=== PATIENT | male | born 1990 | race Caucasian/White ===

== ENCOUNTER 2018-08-30 19:30 | Emergency (ER) | payer MEDICARE, OTHER ==
[~2018-08-30] VITALS: Ht 182.9 cm; Wt 114.0 kg
[2018-08-30 19:34] VITALS: Ht 182.9 cm; Wt 114.0 kg
--- NOTE | 2018-08-30 20:40 | ERD ---
ER Documentation Chief Complaint Chief Complaint FEVER WITH COUGH/SORE THROAT X 4 DAYS HPI 28-year-old male, presents to the emergency department with acute onset of high fever, runny nose, chest congestion, dry cough and general malaise that started 2 days ago. The patient has been receiving iarv-jjx-retomkg medications without improvement of the symptoms. Otherwise, no shortness of breath, no rashes, no diarrhea or constipation. ROS All systems reviewed and are negative except as per history of present illness. Medications Home Meds Active Scripts Promethazine HCl/Codeine (Prometh-Codein 6.25-10 mg/5 ml) 5 Ml Syrup, 5 ML PO BID, #60 ML Prov:JHON HARP MD 08/30/18 Albuterol Sulfate* (Proair HFA*) 8.5 Gm Hfa.aer.ad, 2 PUFF INH Q4, #1 INHALER Prov:JHON HARP MD 08/30/18 Ibuprofen* (Motrin*) 600 Mg Tab, 600 MG PO Q8, #20 TAB Prov:JHON HARP MD 08/30/18 Azithromycin* (Zithromax*) 250 Mg Tablet, 250 MG PO .ZPACK DIRECTED, #6 TAB TAKE 500 MG (2 TABS) THE FIRST DAY THEN 250 MG (1 TAB) DAYS 2-5 Prov:JHON HARP MD 08/30/18 Allergies Allergies: Coded Allergies: No Known Allergy (Unverified , 08/30/18) PMhx/Soc Medical and Surgical Hx: pt denies Medical Hx, pt denies Surgical Hx Hx Alcohol Use: No Hx Substance Use: No Hx Tobacco Use: No Smoking Status: Never smoker FmHx Family History: No diabetes, No coronary disease Physical Exam Vitals Vital Signs Date Temp Pulse Resp B/P (MAP) Pulse Ox O2 O2 Flow FiO2 Time Delivery Rate 08/30/18 99.0 77 18 138/82 98 Room Air 21:50 (100) 08/30/18 102.2 130 20 146/97 96 19:34 (113) Physical Exam Patient is in moderate distress due to cough and fever, vital signs showed fever. EYES: PERRLA, EOMI, injected sclerae EARS: Canals clear, erythematous tympanic membranes THROAT: Erythematous oropharynx. NECK: Supple, No lymphadenopathy. Full ROM without pain or tenderness. HEART: RRR, no rubs, murmurs, clicks or gallops. LUNGS: Bilateral rhonchi to auscultation. ABDOMEN: Soft, non-tender without masses or hepatosplenomegaly. EXTREMITIES: No edema bilaterally. BACK: Full ROM, no deformity, normal back exam NEURO: Cranial nerves grossly intact, no motor or sensory deficit Results 24 hrs Current Medications Medications Dose Sig/Tony Start Time Status Last (Trade) Ordered Route PRN Stop Time Admin Dose Reason Admin Ibuprofen 400 mg ONCE ONCE 08/30/18 DC 08/30/18 (Motrin) PO 21:00 08/30/18 20:54 21:01 650 mg ONCE ONCE 08/30/18 DC 08/30/18 Acetaminophen PO 21:00 08/30/18 20:54 (Tylenol 21:01 Tab) Procedures/MDM At the time of discharge, patient with nontoxic appearance, vital signs stable, no respiratory distress. Differential diagnosis include but not limited to: Respiratory infection bacterial/viral/fungal. Influenza, whooping cough, pneumonia, pneumonitis, al lergies, GERD. Less likely foreign body aspiration, cardiac related. Physical examination and clinical presentation consistent most likely with viral infection with early superimposed bacterial infection. During the ED course the patient remained stable, no new complaints. Treatment options and clinical impression discussed with the patient who agrees with management. The patient is stable to be treated outpatient and will be discharged home. Some side effects of prescribed medications (headache, rash, nausea, vomiting, diarrhea, interactions with other medications) were reviewed. The patient needs to follow up with the primary care provider in the next 48h. If symptoms persist, worsen or new symptoms develop, then patient should return to the ED immediately. Disclaimer: Inadvertent spelling and grammatical errors are likely due to EHR/dictation software use and do not reflect on the overall quality of patient care. Also, please note that the electronic time recorded on this note does not necessarily reflect the actual time of the patient encounter. Departure Diagnosis: Primary Impression: Cough Additional Impressions: Fever Superimposed infection Condition: Stable Additional Instructions: Thank you very much for allowing us to participate in your care. Your health and safety is our top priority at [facility]. Call your primary care doctor TOMORROW for an appointment during the next 2-4 days and bring all the information and medications prescribed. Have prescriptions filled and follow precisely the directions on the label. If the symptoms get worse and your provider is unavailable, return to the Emergency Department immediately. JHON HARP MD Aug 30, 2018 20:40
[2018-08-30] MEDS ORDERED: AZIT250T PO (20:43)
[2018-08-30] MEDS ORDERED: PROM5SYR2 PO (20:43)
[2018-08-30] MEDS ORDERED: ALBU8.5H8 INH (20:43)
[2018-08-30] MEDS ORDERED: IBUP-1542 PO (20:43)
[2018-08-30] MEDS ORDERED: IBUPROFEN 200 MG TAB PO ONE (21:00)
[2018-08-30] MEDS ORDERED: ACETAMINOPHEN 325 MG TAB PO ONE (21:00)
[2018-08-30 21:50] VITALS: BP 138/82; PULSE 77; RESP 18
== END 2018-08-30 21:53 | disposition home or self-care (01) ==
LOC: FTE 19:30
DX: A49.9 Bacterial infection, unspecified (principal)
CPT/HCPCS: 99283

== ENCOUNTER 2018-09-02 07:02 | Inpatient (IN) | payer MEDICARE, OTHER ==
[~2018-09-02] VITALS: Ht 172.7 cm; Wt 116.0 kg
[~2018-09-02 07:02] MED LIST: ALBU8.5H8 INH; AZIT250T PO; IBUP-1542 PO; PROM5SYR2 PO
[2018-09-02] MEDS ORDERED: ALBUTEROL 0.083% (NEB) 2.5 MG/3 ML AMP INH STA (08:11)
[2018-09-02] MEDS ORDERED: IPRATROPIUM (NEB) 0.5 MG/2.5 ML AMP INH STA (08:11)
[2018-09-02] MEDS ORDERED: ACETAMINOPHEN 500 MG TAB PO STA (08:14)
--- NOTE | 2018-09-02 08:19 | ERD ---
ER Documentation Chief Complaint Chief Complaint fever, cough, n/v x 8 days HPI 28-year-old male presents with fever cough, nausea and vomiting 3 days. Seen here 3 days ago, and was given a Z-Jamie. He presents with fever today, still has not improved. He was brought into the ED, with an O2 sat of 91%. He denies recent travel, denies IV drug use, he has a family member who works in the hospital who is sick. ROS All systems reviewed and are negative except as per history of present illness. Medications Home Meds Active Scripts Promethazine HCl/Codeine (Prometh-Codein 6.25-10 mg/5 ml) 5 Ml Syrup, 5 ML PO BID, #60 ML Prov:JHON HARP MD 08/30/18 Albuterol Sulfate* (Proair HFA*) 8.5 Gm Hfa.aer.ad, 2 PUFF INH Q4, #1 INHALER Prov:JHON HARP MD 08/30/18 Ibuprofen* (Motrin*) 600 Mg Tab, 600 MG PO Q8, #20 TAB Prov:JHON HARP MD 08/30/18 Azithromycin* (Zithromax*) 250 Mg Tablet, 250 MG PO .ZPACK DIRECTED, #6 TAB TAKE 500 MG (2 TABS) THE FIRST DAY THEN 250 MG (1 TAB) DAYS 2-5 Prov:JHON HARP MD 08/30/18 Allergies Allergies: Coded Allergies: No Known Allergy (Unverified , 08/30/18) PMhx/Soc Hx Alcohol Use: No Hx Substance Use: No Hx Tobacco Use: No Physical Exam Vitals Vital Signs Date Temp Pulse Resp B/P (MAP) Pulse Ox O2 O2 Flow FiO2 Time Delivery Rate 09/02/18 Simple 5 09:04 Mask 09/02/18 93 Mask 5.0 08:45 09/02/18 112 19 85 21 08:40 09/02/18 103.1 135 25 125/83 85 Room Air 08:30 (97) 09/02/18 Simple 5.0 08:30 Mask 09/02/18 102.6 138 22 162/68 91 07:07 (99) Physical Exam Const: No acute distress Head: Atraumatic Eyes: Normal Conjunctiva ENT: Normal External Ears, Nose and Mouth. Neck: Full range of motion. No meningismus. Resp: Clear to auscultation bilaterally Cardio: Regular rate and rhythm, no murmurs Abd: Soft, non tender, non distended. Normal bowel sounds Skin: No petechiae or rashes Back: No midline or flank tenderness Ext: No cyanosis, or edema Neur: Awake and alert Psych: Normal Mood and Affect Result Diagram: 09/02/18 0857 09/02/18 0857 Results 24 hrs Laboratory Tests Test 09/02/18 08:38 09/02/18 08:57 09/02/18 09:02 Urine Color ADAM Urine Clarity SLIGHTLY CLOUDY Urine pH 6.0 Urine Specific Reserve 1.024 Urine Ketones NEGATIVE mg/dL Urine Nitrite NEGATIVE mg/dL Urine Bilirubin NEGATIVE mg/dL Urine Urobilinogen 2+ mg/dL Urine Leukocyte Esterase NEGATIVE Leslie/ul Urine Microscopic RBC 1 /HPF Urine Microscopic WBC 2 /HPF Urine Hemoglobin 1+ mg/dL Urine Glucose NEGATIVE mg/dL Urine Total Protein 2+ mg/dl White Blood Count 5.3 10^3/ul Red Blood Count 5.67 10^6/ul Hemoglobin 17.0 g/dl Hematocrit 50.3 % Mean Corpuscular Volume 88.7 fl Mean Corpuscular Hemoglobin 30.0 pg Mean Corpuscular 33.8 g/dl Hemoglobin Concent Red Cell Distribution Width 12.5 % Platelet Count 254 10^3/UL Mean Platelet Volume 10.7 fl Immature Granulocytes % 0.400 % Neutrophils % 87.4 % Lymphocytes % 9.3 % Monocytes % 2.7 % Eosinophils % 0.0 % Basophils % 0.2 % Nucleated Red Blood Cells % 0.0 /100WBC Immature Granulocytes # 0.020 10^3/ul Neutrophils # 4.6 10^3/ul Lymphocytes # 0.5 10^3/ul Monocytes # 0.1 10^3/ul Eosinophils # 0.0 10^3/ul Basophils # 0.0 10^3/ul Nucleated Red Blood Cells # 0.0 10^3/ul Prothrombin Time 12.5 Sec Prothrombin Time Ratio 1.0 INR International 0.92 Normalized Ratio Activated Partial Thromboplast 29.4 Sec Time Sodium Level 137 mmol/L Potassium Level 3.9 mmol/L Chloride Level 97 mmol/L Carbon Dioxide Level 30 mmol/L Anion Gap 10 Blood Urea Nitrogen 11 mg/dl Creatinine 0.90 mg/dl Est Glomerular Filtrat > 60 mL/min Rate mL/min Glucose Level 143 mg/dl Calcium Level 8.6 mg/dl Total Bilirubin 0.4 mg/dl Direct Bilirubin 0.00 mg/dl Indirect Bilirubin 0.4 mg/dl Aspartate Amino Transf (AST/SGOT) 106 IU/L Alanine 65 IU/L Aminotransferase (ALT/SGPT) Alkaline Phosphatase 89 IU/L Troponin I < 0.012 ng/ml B-Type Natriuretic Peptide 24 PG/ML Total Protein 7.1 g/dl Albumin 3.8 g/dl Globulin 3.30 g/dl Albumin/Globulin Ratio 1.15 POC Venous Lactate 2.3 mmol/L Current Medications Medications Dose Sig/Tony Start Time Status Last (Trade) Ordered Route PRN Stop Time Admin Dose Reason Admin Albuterol 5 mg ONCE STAT 09/02/18 DC 09/02/18 (Proventil INH 08:11 09/02/18 08:38 0.083% (Neb)) 08:16 Ipratropium 0.5 mg ONCE STAT 09/02/18 DC 09/02/18 [place] INH 08:11 09/02/18 08:37 (Atrovent 08:16 0.02% (Neb)) 1,000 mg ONCE STAT 09/02/18 DC 09/02/18 Acetaminophen PO 08:14 09/02/18 08:39 (Tylenol 08:16 Tab) Sodium 3,480 ml BOLUS OVER 2 09/02/18 DC 09/02/18 Chloride HOURS STAT 08:49 09/02/18 09:10 (NS) IV* 08:59 Ceftriaxone 50 ml @ ONCE STAT 09/02/18 DC 09/02/18 Sodium 100 mls/hr IVPB 08:49 09/02/18 09:11 09:18 Azithromycin 250 ml @ ONCE STAT 09/02/18 DC 09/02/18 250 mls/hr IV 08:49 09/02/18 09:44 09:48 IV Flush 10 ml STK-MED 09/02/18 DC 09/02/18 (NS 10 ml) ONCE .ROUTE 09:47 09/02/18 10:20 09:48 Sodium 100 ml @ ud STK-MED 09/02/18 DC 09/02/18 Chloride ONCE .ROUTE 09:47 09/02/18 10:20 09:48 Iohexol 150 ml STK-MED 09/02/18 DC 09/02/18 (Omnipaque ONCE .ROUTE 09:47 09/02/18 10:22 300mg/ ml) 09:48 Procedures/MDM This is a 28-year-old male who presents for evaluation of priapism. Patient was seen immediately, consulted urology, Dr. Luciano. Recommended treatment for priapism, with injection of phenylephrine and aspiration. Approximately 20 mL's of red blood were aspirated, and injected 2 cc of phenylephrine, with concentration prepared by pharmacy. Detumescence was achieved, and compression was applied to prevent hematoma, strict return precautions were given to pat bonint, at discharge she was in no acute distress Critical Care Time: 15 minutes Treatments/Evaluations: Close monitoring and treatment of unstable vital signs, cardiorespiratory, and neurologic status, while maintaining tight balance of fluid, respiratory, and cardiac interventions. This time includes discussing the case with the patient and the patient's family. This time does not include all procedures stated elsewhere in this record. This time also includes reviewing old records, labs and radiological studies. This time includes examining and re- examining the patient. Additionally, this time also includes arranging care with admitting and consulting physicians. Abscess Incision and aspiration Location: Dorsal aspect of penis at 10 o'clock position Anesthesia: [Local 1% Lidocaine without epinephrine] Technique: Aspiration, with withdrawal of 20 cc of blood, injecting 2 cc of phenylephrine Departure Diagnosis: Primary Impression: Priapism Condition: Stable EDISON JACOB MD Sep 02, 2018 08:19
[2018-09-02] MEDS ORDERED: CEFTRIAXONE 1 GM/50 ML (PMX) 50 ML IVPB STA (08:49)
[2018-09-02] MEDS ORDERED: SODIUM CHLORIDE 0.9% 1L BAG IV* STA (08:49)
[2018-09-02] MEDS ORDERED: AZITHROMYCIN 500MG/NS (PMX) 250 ML IV STA (08:49)
[2018-09-02] MEDS ORDERED: SOD CHLORIDE 0.9% 100 ML ONE (09:47)
[2018-09-02] MEDS ORDERED: IOHEXOL 300MG/ML 150 ML BTL ONE (09:47)
[2018-09-02] MEDS ORDERED: METHYLPREDNISOLONE 125 MG INJ IV STA (11:16)
[2018-09-02] MEDS ORDERED: ALBUTEROL 0.083% (NEB) 2.5 MG/3 ML AMP HHN PRN (13:00)
[2018-09-02] MEDS ORDERED: GUAIFENESIN/CODEINE 5ML CUP PO PRN (13:00)
--- NOTE | 2018-09-02 13:49 | HP ---
DATE OF ADMISSION: 09/02/2018 PRESENTING COMPLAINT: Fever and cough. HISTORY OF PRESENTING COMPLAINT: A very pleasant 28-year-old male who was here a few days ago with c ough and fever and was treated for acute respiratory tract infection and was given oral antibiotics t o take at home. The patient reports filling medication and taking it but without significant improve ment. He is back with persistent cough and fever and chills, found to be septic now and is being adm itted for failed antibiotic treatment of respiratory tract infection. PAST SURGICAL HISTORY: Denies surgical history. He has had orthopedic surgery to his right leg. He is status post cholecystectomy. ALLERGIES: Has no known drug allergies. SOCIAL HISTORY: Does not drink alcohol and does occasionally smokes cigarettes. REVIEW OF SYSTEMS: A 12-point review of system was done. Mainly pertinent findings are as noted in HPI. HOME MEDICATIONS: Reviewed and reconciled. PHYSICAL EXAMINATION: VITAL SIGNS: Temperature maximum 103.1, pulse ranges anywhere from 77 to 122, respiratory rate is be tween 18 and 22. Saturations are anywhere between 85 on room air and 94 on oxygen via nasal cannula on 4 liters a minute. Note that the patient was on simple mask when he first arrived and has been we aned down to 4 liters after initial treatment. GENERAL: Young male, alert and oriented, in no distress. HEENT: Head is normocephalic. Pupils equal, round, and reactive. Mucous membranes are slightly dry . Posterior pharynx clear of erythema and exudate. have a little bit of erythema noted. NECK: Supple, nontender. CHEST: With significantly diminished breath sounds without wheezes or crackles. CARDIOVASCULAR: S1, S2, no murmurs. He is tachycardic. ABDOMEN: Soft, nontender, nondistended. There is no lower extremity edema. SKIN: Devoid of rash or jaundice. LABORATORY VALUES: CBC is unremarkable, but he does have a neutrophil predominance, a complete metab olic profile, AST is 106, but ALT and alkaline phosphatase are normal. Troponin is negative. Point of care venous lactate was 2.3 on arrival, it has improved to 1.5. Coag profile unremarkable. Urina lysis suggestive of proteinuria and microscopic hematuria, but no concern for infection. Influenza s creen negative. IMAGING: Chest x-ray did show multiple round nodular densities throughout both lungs concerning for infection versus malignancy, recommend CT with IV contrast to evaluate. Chest CT showed diffuse mult ifocal consolidation bilaterally including perihilar and peribronchial vascular distribution as well as peripheral patchy non-segmental consolidation throughout the lungs. Differentials include multifo popeye pneumonia, vasculitis and diffuse damage. Also noted was an incidental finding of a left ad renal gland myolipoma measuring 8.5 x [address] a [address] of the abdomen to evaluate. ASSESSMENT: 1. Sepsis secondary to #2. 2. Multifocal pneumonitis, status post failed outpatient treatment. 3. 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 4. Hepatic steatosis. PLAN OF CARE: To admit the patient for further workup and management. Put him on IV antibiotic ther apy. We are going to get a CT scan of the abdomen as well and endocrinology consult to evaluate his adrenal gland findings. The patient does have a significantly diffuse pneumonia which is unusual for his age. He may need further intervention and further evaluation for that, so I will get ID consult as well. Further intervention will depend on his clinical course. Plan of care has been discussed with him in detail. Questions have been answered. Dictated By: RAMSEY MONREAL MD BA/NTS Conf#: [id number] DID#: [id number]
[2018-09-02] MEDS: ALBUTEROL 0.083% (NEB) 2.5 MG/3 ML AMP HHN SCH ×2 (14:16→20:00)
[2018-09-02] MEDS: SOD CHLORIDE 0.9% 1,000 ML IV SCH ×2 (15:39→21:00)
[2018-09-02 16:20] VITALS: PULSE 114
[2018-09-02 16:56] VITALS: BP 141/89; PULSE 110; RESP 20
[2018-09-02 16:57] VITALS: Ht 172.7 cm; Wt 116.0 kg
[2018-09-02 19:35] VITALS: BP 146/81; PULSE 113; RESP 18
[2018-09-02 20:00] VITALS: PULSE 107
[2018-09-02 23:40] VITALS: BP 128/75; PULSE 97; RESP 17
[2018-09-03] VITALS (14 sets, daily range): BP systolic 128–137; BP diastolic 61–77; PULSE 100–194; RESP 21–24
[2018-09-03] MEDS: ALBUTEROL 0.083% (NEB) 2.5 MG/3 ML AMP HHN SCH ×3 (01:04→13:03)
[2018-09-03] MEDS ORDERED: FUROSEMIDE 20 MG INJ IV ONE (02:00)
[2018-09-03] MEDS ORDERED: CEFTRIAXONE 1 GM/50 ML (PMX) 50 ML IVPB SCH (09:00)
--- NOTE | 2018-09-03 10:15 | CONS ---
Assessment/Plan Assessment/Plan Problems: (1) Left adrenal mass Comment: This is a newly discovered item. We do not have any specific imaging studies of the adrenal mass at this time but we will go ahead and get that underway. In the meantime biochemical studies are in process. His cortisol level was elevated and he is received hydrocortisone which means doing a dexamethasone suppression test at this time will have to be postponed 24 hours. There is nothing to suggest hyperaldosteronism and he does not have any the findings to suggest hyper adrenergic state or a pheochromocytoma. Regardless based on the size of this lesion if it confirms size on follow-up imaging study then he will need to be referred for surgical resection of this and adrenal gland. That surgery should occur once his pulmonary status is stabilized (2) Status post cholecystectomy Onset Date: ~ 08/2003 Status: Chronic Comment: Noted. Regrettably this is far enough back that there will not be any imaging studies that would tell us about the history of his adrenal gland (3) Postsurgical dumping syndrome Status: Chronic Comment: Consider low-dose verapamil for the patient's quality of life (4) Multifocal pneumonia Status: Acute Comment: As per primary care team Consultation Date/Type/Reason Admit Date/Time Sep 02, 2018 at 09:22 Date of Consultation: Sep 03, 2018 Type of Consult Endocrinology Reason for Consultation Left adrenal mass larger than 4.5 cm Requesting Provider: RAMSEY MONREAL Date/Time of Note DATE: 09/03/18 TIME: 10:10 Hx of Present Illness 28-year-old single male admitted with multifocal pneumonia. He was discovered with a CT scan that he has a left adrenal mass greater than 4.5 cm. He has a negative review of systems to suggest endocrinopathy denying any history of blood pressure issues abdominal pain nausea vomiting. There have been no headaches. There is no family history of endocrine disorders or hypertension or adrenal issues to the best of the patient's knowledge. There is no history of hypokalemia for the patient or any blood relatives. Constitutional: febrile (Fever is what brought him into the hospital with a pulmonary issue he reports his fever is a little bit better) Eyes: no complaints ENT: no complaints Respiratory: cough, shortness of breath Cardiovascular: no complaints Gastrointestinal: no complaints Genitourinary: no complaints Musculoskeletal: no complaints Skin: no complaints Endocrine: no complaints Past Medical History Medical History: other (Postcholecystectomy dumping syndrome) Home Meds Active Scripts Promethazine HCl/Codeine (Prometh-Codein 6.25-10 mg/5 ml) 5 Ml Syrup, 5 ML PO BID, #60 ML Prov:JHON HARP MD 08/30/18 Albuterol Sulfate* (Proair HFA*) 8.5 Gm Hfa.aer.ad, 2 PUFF INH Q4, #1 INHALER Prov:JHON HARP MD 08/30/18 Ibuprofen* (Motrin*) 600 Mg Tab, 600 MG PO Q8, #20 TAB Prov:JHON HARP MD 08/30/18 Azithromycin* (Zithromax*) 250 Mg Tablet, 250 MG PO .ZPACK DIRECTED, #6 TAB TAKE 500 MG (2 TABS) THE FIRST DAY THEN 250 MG (1 TAB) DAYS 2-5 Prov:JHON HARP MD 08/30/18 Medications Current Medications Ceftriaxone Sodium 50 ml @ 100 mls/hr Q24H IVPB Last administered on 09/03/18at 09:09; Admin Dose 100 MLS/HR; Start 09/03/18 at 09:00 Azithromycin 250 ml @ 250 mls/hr Q24H IVPB ; Start 09/03/18 at 10:00 Albuterol (Proventil 0.083% (Neb)) 2.5 mg Q6H RESP THERAPY HHN Last administered on 09/03/18at 07:18; Admin Dose 2.5 MG; Start 09/02/18 at 14:00 Albuterol (Proventil 0.083% (Neb)) 2.5 mg Q2H RESP THERAPY PRN HHN SHORTNESS OF BREATH Last administered on 09/02/18at 15:57; Admin Dose 2.5 MG; Start 09/02/18 at 13:00 Guaifenesin/ Codeine Phosphate (Robitussin Ac Liquid Cup) 10 ml Q4H PRN PO cough; Start 09/02/18 at 13:00 Influenza Virus Vaccine Quadrival (Fluzone) 0.5 ml ONCE ONCE IM* ; Start 09/03/18 at 10:00; Stop 09/03/18 at 10:01 Allergies: Coded Allergies: No Known Allergy (Unverified , 09/02/18) Past Surgical History Past Surgical Hx: cholecystectomy (In roughly 2003 at the age of 13 at [facility]) Family History Significant Family History: no pertinent family hx Social History Alcohol Use: rarely Smoking Status: Never smoker Drug Use: none Exam/Review of Systems Exam Vitals Vital Signs Date Temp Pulse Resp B/P (MAP) Pulse Ox O2 O2 Flow FiO2 Time Delivery Rate 09/03/18 99.2 116 24 132/77 98 Nasal 09:07 (95) Cannula 09/03/18 15.0 100 07:19 Intake and Output 09/02/18 09/02/18 09/03/18 1515:00 23:00 07:00 IntakeIntake Total 500 ml 3000 ml 520 ml BalanceBalance 500 ml 3000 ml 520 ml Exam Somewhat stoic and withdrawn male in no maik distress, wearing an oxygen mask Constitutional: alert, oriented Head: normocephalic, atraumatic Eyes: nl conjunctiva, EOMI, nl lids Cardiovascular: regular rate and rhythm, nl pulses Gastrointestinal: soft, nl liver, spleen, non-tender Results Result Diagram: 09/03/18 0529 09/03/18 0530 Results 24hrs Laboratory Tests Test 09/02/18 10:59 09/02/18 13:56 09/03/18 05:29 09/03/18 05:30 POC Venous Lactate 1.5 Lactic Acid Level 1.4 1.7 Thyroid Stimulating 0.463 L Hormone (TSH) Free Thyroxine 1.31 Free Triiodothyronine 2.23 L (T3) pg/mL Random Cortisol 39.5 White Blood Count 8.0 # Red Blood Count 5.21 Hemoglobin 15.6 Hematocrit 47.0 Mean Corpuscular Volume 90.2 Mean Corpuscular 29.9 Hemoglobin Mean Corpuscular 33.2 Hemoglobin Concent Red Cell Distribution 12.6 Width Platelet Count 224 Mean Platelet Volume 9.8 Immature Granulocytes % 0.500 H Neutrophils % 87.3 H Lymphocytes % 7.5 L Monocytes % 4.6 Eosinophils % 0.0 Basophils % 0.1 Nucleated Red Blood 0.0 Cells % Immature Granulocytes # 0.040 H Neutrophils # 7.0 Lymphocytes # 0.6 L Monocytes # 0.4 Eosinophils # 0.0 Basophils # 0.0 Nucleated Red Blood 0.0 Cells # Sodium Level 143 Potassium Level 3.7 Chloride Level 105 Carbon Dioxide Level 29 Anion Gap 9 Blood Urea Nitrogen 11 Creatinine 0.72 Est Glomerular Filtrat > 60 Rate mL/min Glucose Level 137 Calcium Level 8.4 Magnesium Level 2.4 Medications Medication Current Medications Ceftriaxone Sodium 50 ml @ 100 mls/hr Q24H IVPB Last administered on 09/03/18at 09:09; Admin Dose 100 MLS/HR; Start 09/03/18 at 09:00 Azithromycin 250 ml @ 250 mls/hr Q24H IVPB ; Start 09/03/18 at 10:00 Albuterol (Proventil 0.083% (Neb)) 2.5 mg Q6H RESP THERAPY HHN Last administered on 09/03/18at 07:18; Admin Dose 2.5 MG; Start 09/02/18 at 14:00 Albuterol (Proventil 0.083% (Neb)) 2.5 mg Q2H RESP THERAPY PRN HHN SHORTNESS OF BREATH Last administered on 09/02/18at 15:57; Admin Dose 2.5 MG; Start 09/02/18 at 13:00 Guaifenesin/ Codeine Phosphate (Robitussin Ac Liquid Cup) 10 ml Q4H PRN PO cough; Start 09/02/18 at 13:00 Influenza Virus Vaccine Quadrival (Fluzone) 0.5 ml ONCE ONCE IM* ; Start 09/03/18 at 10:00; Stop 09/03/18 at 10:01 ANGELES KIDD MD Sep 03, 2018 10:15
[2018-09-03] MEDS: AZITHROMYCIN 500MG/NS (PMX) 250 ML IVPB SCH (11:05)
--- NOTE | 2018-09-03 13:11 | CONS ---
Assessment/Plan Assessment/Plan Hospital Course (Demo Recall) Patient is alert comfortable on facemask spiking fevers with a T-max yesterday of 103.1 to current 100.1. He is in no distress, family at bedside. WBC today 8 H&H 15.6 and 47 platelets 224 neutrophils 87.3 BUN 11 creatinine 0.72 Microbiology: Influenza swab negative blood cultures negative CT of the chest on admission revealed diffuse multifocal consolidations bilaterally. Left adrenal gland myelolipoma partially visualized and measuring up to 8.5 x 7 cm. Antimicrobials: Zithromax Rocephin. Well-developed middle-aged man who is alert in no distress. Physical examination: This is a morbidly obese head atraumatic normocephalic sclera nonicteric neck is obese chest rise symmetrical breath sounds diminished. Heart: S1-S2. Abdomen soft bowel sounds present. Extremities without cyanosis. Assessment: 1. Sepsis, present on admission 2. Acute hypoxemic respiratory failure 3. Community-acquired pneumonia 4. Morbid obesity 5. Adrenal mass Plan: Change antibiotics to cefepime and levofloxacin as patient was already treated outpatient with oral antibiotics. Check HIV status. Swab nares for MRSA and try to obtain sputum cultures, consider pulmonary evaluation Consultation Date/Type/Reason Admit Date/Time Sep 02, 2018 at 09:22 Initial Consult Date 09/03/18 Type of Consult id Requesting Provider: RAMSEY MONREAL Date/Time of Note DATE: 09/03/18 TIME: 13:10 Exam/Review of Systems Exam Vitals Vital Signs Date Temp Pulse Resp B/P (MAP) Pulse Ox O2 O2 Flow FiO2 Time Delivery Rate 09/03/18 111 20 94 Simple 12.0 13:03 Mask 09/03/18 100.1 128/75 12:11 (92) 09/03/18 100 07:19 Intake and Output 09/02/18 09/02/18 09/03/18 1515:00 23:00 07:00 IntakeIntake Total 500 ml 3000 ml 520 ml BalanceBalance 500 ml 3000 ml 520 ml Results Result Diagram: 09/03/18 0529 09/03/18 0530 Results 24hrs Laboratory Tests Test 09/02/18 13:56 09/03/18 05:29 09/03/18 05:30 Lactic Acid Level 1.4 1.7 Thyroid Stimulating Hormone (TSH) 0.463 L Free Thyroxine 1.31 Free Triiodothyronine (T3) pg/mL 2.23 L Random Cortisol 39.5 White Blood Count 8.0 # Red Blood Count 5.21 Hemoglobin 15.6 Hematocrit 47.0 Mean Corpuscular Volume 90.2 Mean Corpuscular Hemoglobin 29.9 Mean Corpuscular Hemoglobin Concent 33.2 Red Cell Distribution Width 12.6 Platelet Count 224 Mean Platelet Volume 9.8 Immature Granulocytes % 0.500 H Neutrophils % 87.3 H Lymphocytes % 7.5 L Monocytes % 4.6 Eosinophils % 0.0 Basophils % 0.1 Nucleated Red Blood Cells % 0.0 Immature Granulocytes # 0.040 H Neutrophils # 7.0 Lymphocytes # 0.6 L Monocytes # 0.4 Eosinophils # 0.0 Basophils # 0.0 Nucleated Red Blood Cells # 0.0 Sodium Level 143 Potassium Level 3.7 Chloride Level 105 Carbon Dioxide Level 29 Anion Gap 9 Blood Urea Nitrogen 11 Creatinine 0.72 Est Glomerular Filtrat Rate mL/min > 60 Glucose Level 137 Calcium Level 8.4 Magnesium Level 2.4 Medications Medication Current Medications Ceftriaxone Sodium 50 ml @ 100 mls/hr Q24H IVPB Last administered on 09/03/18at 09:09; Admin Dose 100 MLS/HR; Start 09/03/18 at 09:00 Azithromycin 250 ml @ 250 mls/hr Q24H IVPB Last administered on 09/03/18at 11:05; Admin Dose 250 MLS/HR; Start 09/03/18 at 10:00; Stop 09/06/18 at 09:59 Albuterol (Proventil 0.083% (Neb)) 2.5 mg Q6H RESP THERAPY HHN Last administered on 09/03/18at 13:03; Admin Dose 2.5 MG; Start 09/02/18 at 14:00 Albuterol (Proventil 0.083% (Neb)) 2.5 mg Q2H RESP THERAPY PRN HHN SHORTNESS OF BREATH Last administered on 09/02/18at 15:57; Admin Dose 2.5 MG; Start 09/02/18 at 13:00 Guaifenesin/ Codeine Phosphate (Robitussin Ac Liquid Cup) 10 ml Q4H PRN PO cough; Start 09/02/18 at 13:00 Verapamil HCl (Isoptin Sr) 120 mg DAILY PO ; Start 09/03/18 at 11:00 CRISTAL MELLO NP Sep 03, 2018 13:11
--- NOTE | 2018-09-03 13:33 | PN ---
Date/Time of Note Date/Time of Note DATE: 09/03/18 TIME: 13:32 Assessment/Plan VTE Prophylaxis Risk score (from Ns)>0 risk: 1 SCD applied (from [facility]): No SCD contraindicated: other Pharmacological prophylaxis: LMWH Lines/Catheters IV Catheter Type (from [facility]): Peripheral IV Assessment/Plan Hospital Course SUBJECTIVE: Continues to have dyspnea and cough. OBJECTIVE: Physical Exam General: Morbidly obese, 28 year-old male lying in bed in no apparent distress. HEENT: Normocephalic, atraumatic. Eyes: Anicteric sclerae, conjunctivae clear. ENT: Nasal septum midline, oral mucosa moist. Neck supple, no JVD noticed. Respiratory: Bilaterally diminished breath sounds. Use of accessory muscles of respiration. Bilateral rhonchi. Cardiovascular: S1, S2 heard. Regular rate and rhythm. Abdomen: Soft, nontender, and nondistended. Bowel sounds positive in all 4 quadrants. Genitourinary: Deferred. Extremities: No cyanosis, no clubbing, no edema. Peripheral pulses palpable. Neurologic: Cranial nerves II through XII grossly intact. The patient is awake, alert, and oriented. Skin: Normal skin turgor. No skin rashes. Labs & Vitals per chart ASSESSMENT & PLAN 28-year-old with comorbidities including obesity who was recently treated for upper respiratory tract infection. The patient came back to the emergency room on 09/02/2018 with fevers and cough. The chest CT showed diffuse multifocal consolidations bilaterally. The patient also had underlying febrile illness, tachycardia, and lactic acidosis. The patient was admitted to inpatient setting for further treatment and evaluation. 1. Sepsis with underlying febrile illness , tachycardia, and lactic acidosis, secondary to underlying community acquired pneumonia. -Continue antimicrobials. -Await pancultures. -Follow ID recommendations 2. Multifocal pneumonia. -Atypical in nature. -Obtain studies for atypical pneumonia including coccidioidomycosis, histoplasmosis, and cryptococcosis. -Obtain HIV status. -Obtain pulmonary evaluation. 3. Acute hypoxic respiratory failure. -Most probably secondary to underlying multifocal pneumonia. -Continue supplemental oxygen -Continue inhaled bronchodilators. 4. Left adrenal mass. -Being evaluated by endocrinology. -Follow endocrinology recommendations. 5. Obesity -BMI more than 38. -Will advise weight reduction. 6. Fluids, electrolytes, and nutrition. -Regular diet. 7. DVT prophylaxis. -Subcutaneous Lovenox. 8. Plan. -Continue antimicrobials as per ID. -Obtain pulmonology consult -Send serologic studies for atypical pneumonia including coccidioidomycosis, and histoplasmosis. The patient was seen in collaboration with Dr. Ingram. Result Diagram: 09/03/18 0529 09/03/18 0530 Results 24hrs Laboratory Tests Test 09/02/18 13:56 09/03/18 05:29 09/03/18 05:30 Lactic Acid Level 1.4 1.7 Thyroid Stimulating Hormone (TSH) 0.463 L Free Thyroxine 1.31 Free Triiodothyronine (T3) pg/mL 2.23 L Random Cortisol 39.5 White Blood Count 8.0 # Red Blood Count 5.21 Hemoglobin 15.6 Hematocrit 47.0 Mean Corpuscular Volume 90.2 Mean Corpuscular Hemoglobin 29.9 Mean Corpuscular Hemoglobin Concent 33.2 Red Cell Distribution Width 12.6 Platelet Count 224 Mean Platelet Volume 9.8 Immature Granulocytes % 0.500 H Neutrophils % 87.3 H Lymphocytes % 7.5 L Monocytes % 4.6 Eosinophils % 0.0 Basophils % 0.1 Nucleated Red Blood Cells % 0.0 Immature Granulocytes # 0.040 H Neutrophils # 7.0 Lymphocytes # 0.6 L Monocytes # 0.4 Eosinophils # 0.0 Basophils # 0.0 Nucleated Red Blood Cells # 0.0 Sodium Level 143 Potassium Level 3.7 Chloride Level 105 Carbon Dioxide Level 29 Anion Gap 9 Blood Urea Nitrogen 11 Creatinine 0.72 Est Glomerular Filtrat Rate mL/min > 60 Glucose Level 137 Calcium Level 8.4 Magnesium Level 2.4 Exam/Review of Systems Exam Vitals Vital Signs Date Temp Pulse Resp B/P (MAP) Pulse Ox O2 O2 Flow FiO2 Time Delivery Rate 09/03/18 111 20 94 Simple 12.0 13:03 Mask 09/03/18 100.1 128/75 12:11 (92) 09/03/18 100 07:19 Intake and Output 09/02/18 09/02/18 09/03/18 1515:00 23:00 07:00 IntakeIntake Total 500 ml 3000 ml 520 ml BalanceBalance 500 ml 3000 ml 520 ml Results Results 24hrs Laboratory Tests Test 09/02/18 13:56 09/03/18 05:29 09/03/18 05:30 Lactic Acid Level 1.4 1.7 Thyroid Stimulating Hormone (TSH) 0.463 L Free Thyroxine 1.31 Free Triiodothyronine (T3) pg/mL 2.23 L Random Cortisol 39.5 White Blood Count 8.0 # Red Blood Count 5.21 Hemoglobin 15.6 Hematocrit 47.0 Mean Corpuscular Volume 90.2 Mean Corpuscular Hemoglobin 29.9 Mean Corpuscular Hemoglobin Concent 33.2 Red Cell Distribution Width 12.6 Platelet Count 224 Mean Platelet Volume 9.8 Immature Granulocytes % 0.500 H Neutrophils % 87.3 H Lymphocytes % 7.5 L Monocytes % 4.6 Eosinophils % 0.0 Basophils % 0.1 Nucleated Red Blood Cells % 0.0 Immature Granulocytes # 0.040 H Neutrophils # 7.0 Lymphocytes # 0.6 L Monocytes # 0.4 Eosinophils # 0.0 Basophils # 0.0 Nucleated Red Blood Cells # 0.0 Sodium Level 143 Potassium Level 3.7 Chloride Level 105 Carbon Dioxide Level 29 Anion Gap 9 Blood Urea Nitrogen 11 Creatinine 0.72 Est Glomerular Filtrat Rate mL/min > 60 Glucose Level 137 Calcium Level 8.4 Magnesium Level 2.4 Medications Medication Current Medications Azithromycin 250 ml @ 250 mls/hr Q24H IVPB Last administered on 09/03/18at 11:05; Admin Dose 250 MLS/HR; Start 09/03/18 at 10:00; Stop 09/06/18 at 09:59 Albuterol (Proventil 0.083% (Neb)) 2.5 mg Q6H RESP THERAPY HHN Last administered on 09/03/18at 13:03; Admin Dose 2.5 MG; Start 09/02/18 at 14:00 Albuterol (Proventil 0.083% (Neb)) 2.5 mg Q2H RESP THERAPY PRN HHN SHORTNESS OF BREATH Last administered on 09/02/18at 15:57; Admin Dose 2.5 MG; Start 09/02/18 at 13:00 Guaifenesin/ Codeine Phosphate (Robitussin Ac Liquid Cup) 10 ml Q4H PRN PO cough; Start 09/02/18 at 13:00 Verapamil HCl (Isoptin Sr) 120 mg DAILY PO ; Start 09/03/18 at 11:00 Cefepime HCl 50 ml @ 100 mls/hr Q12 IVPB ; Start 09/03/18 at 21:00; Status UNV Levofloxacin/ Dextrose 150 ml @ 100 mls/hr Q24H IVPB ; Start 09/03/18 at 13:30; Status UNV REDDY RYAN NP Sep 03, 2018 13:33
[2018-09-03] MEDS: ALBUTEROL/IPRATROPIUM (NEB) 3 ML AMP HHN SCH ×2 (13:40→20:02)
[2018-09-03] MEDS: VERAPAMIL (SR) 120 MG TAB PO SCH (17:40)
[2018-09-03] MEDS: LEVOFLOXACIN 750MG/D5W (PMX) 150 ML IVPB SCH (17:41)
[2018-09-03] MEDS ORDERED: IOHEXOL 14.3 MG(I)/ML (ADULT) BTL PO ONE (18:30)
[2018-09-03] MEDS: LEVALBUTEROL (NEB) 1.25 MG/0.5 ML AMP HHN SCH (21:00)
[2018-09-03] MEDS ORDERED: LEVALBUTEROL (NEB) 1.25 MG/0.5 ML AMP HHN PRN (21:00)
[2018-09-03] MEDS: CEFEPIME 1GM/50 ML (PMX) 50 ML IVPB SCH (21:46)
[2018-09-04] VITALS (12 sets, daily range): BP systolic 133–159; BP diastolic 71–81; PULSE 81–120; RESP 18–22
[2018-09-04] MEDS: LEVALBUTEROL (NEB) 1.25 MG/0.5 ML AMP HHN SCH ×6 (01:00→20:17)
[2018-09-04] MEDS: CEFEPIME 1GM/50 ML (PMX) 50 ML IVPB SCH ×2 (09:46→21:27)
[2018-09-04] MEDS: VERAPAMIL (SR) 120 MG TAB PO SCH (09:46)
[2018-09-04] MEDS: ENOXAPARIN 40 MG/0.4 ML SYG SC SCH (09:56)
--- NOTE | 2018-09-04 11:04 | CONS ---
Assessment/Plan Assessment/Plan Problems: (1) Left adrenal mass Comment: Newly located. This will need surgical resection as an outpatient later. Biochemical tests are pending to rule out pheochromocytoma. As soon as the catecholamines are back to normal then he can be considered for surgery. Of course his lungs will also have to be in good order. Generally this would be the provenance of endocrine surgery although some general surgeons are able to do this and some urologist as well. (2) Postsurgical dumping syndrome Status: Chronic Comment: Improving nicely with very low-dose verapamil. Positive outcome on quality of life (3) Multifocal pneumonia Status: Acute Comment: As per primary care team Consultation Date/Type/Reason Admit Date/Time Sep 02, 2018 at 09:22 Initial Consult Date 09/03/18 Type of Consult Endocrinology Reason for Consultation Left adrenal mass; postsurgical dumping syndrome; obesity; multifocal pneumonia Requesting Provider: RAMSEY MONREAL Date/Time of Note DATE: 09/04/18 TIME: 11:02 24 HR Interval Summary Free Text/Dictation Patient reports his breathing is a little bit better. In addition reports his rectal urgency has stopped with the addition of verapamil Constitutional: no complaints Detailed Summary Respiratory: cough, shortness of breath Cardiovascular: no complaints Gastrointestinal: no complaints Genitourinary: no complaints Exam/Review of Systems Exam Vitals Vital Signs Date Temp Pulse Resp B/P (MAP) Pulse Ox O2 O2 Flow FiO2 Time Delivery Rate 09/04/18 109 08:01 09/04/18 98.6 20 134/79 92 Nasal 07:41 (97) Cannula 09/04/18 100 07:28 09/03/18 15.0 20:02 Intake and Output 09/03/18 09/03/18 09/04/18 1515:00 23:00 07:00 IntakeIntake Total 1250 ml 1600 ml 750 ml BalanceBalance 1250 ml 1600 ml 750 ml Constitutional: alert, oriented Psych: other (Flat affect) Neck: supple, non-tender Respiratory: normal air movement Cardiovascular: regular rate and rhythm, nl pulses Gastrointestinal: soft, nl liver, spleen, non-tender Results Result Diagram: 09/04/18 0555 09/04/18 0555 Results 24hrs Laboratory Tests Test 09/03/18 16:26 09/03/18 23:40 09/04/18 05:55 HIV (1&2) Antibody NEGATIVE Blood Gas Specimen Source Blood arterial Arterial Blood Date Drawn 09/04/2018 12:15:34 AM Arterial Blood pH 7.469 H (Temp corrected) Arterial Blood pCO2 34.4 L (Temp correct) Arterial Blood pO2 66.0 L (Temp corrected) Arterial Blood HCO3 24.4 Arterial Blood Base Excess 1.3 Arterial Blood 93.6 L Oxygen Saturation Dorian Test ACCEPTAB Arterial Blood Gas Left Radial Puncture Site Arterial 0.3 Blood Carboxyhemoglobin Arterial Blood Methemoglobin 0.3 Blood Gas A-a O2 324.0 H Differential Oxyhemoglobin Percent 93.0 Blood Gas Temperature 37.0 Blood Gas Actual 33 Respiration Rate Blood Gas Modality HFNC FiO2 60.0 Blood Gas Notified Whom MA Blood Gas Notified Time 09/04/2018 12:37:23 AM White Blood Count 7.8 Red Blood Count 4.95 Hemoglobin 14.9 Hematocrit 44.2 Mean Corpuscular Volume 89.3 Mean Corpuscular Hemoglobin 30.1 Mean Corpuscular 33.7 Hemoglobin Concent Red Cell Distribution Width 13.0 Platelet Count 262 Mean Platelet Volume 9.4 Immature Granulocytes % 0.300 Neutrophils % 84.3 H Lymphocytes % 10.8 L Monocytes % 4.5 Eosinophils % 0.0 Basophils % 0.1 Nucleated Red Blood Cells % 0.0 Immature Granulocytes # 0.020 Neutrophils # 6.6 Lymphocytes # 0.8 Monocytes # 0.4 Eosinophils # 0.0 Basophils # 0.0 Nucleated Red Blood Cells # 0.0 Sodium Level 140 Potassium Level 3.8 Chloride Level 105 Carbon Dioxide Level 26 Anion Gap 9 Blood Urea Nitrogen 11 Creatinine 0.60 L Est Glomerular Filtrat > 60 Rate mL/min Glucose Level 101 Calcium Level 8.3 L Phosphorus Level 2.7 Magnesium Level 2.3 Triglycerides Level 158 H Cholesterol Level 89 L LDL Cholesterol, Calculated 41 HDL Cholesterol 16 L Cholesterol/HDL Ratio 5.5 Medications Medication Current Medications Azithromycin 250 ml @ 250 mls/hr Q24H IVPB Last administered on 09/03/18at 11:05; Admin Dose 250 MLS/HR; Start 09/03/18 at 10:00; Stop 09/06/18 at 09:59 Albuterol (Proventil 0.083% (Neb)) 2.5 mg Q2H RESP THERAPY PRN HHN SHORTNESS OF BREATH Last administered on 09/02/18at 15:57; Admin Dose 2.5 MG; Start 09/02/18 at 13:00 Guaifenesin/ Codeine Phosphate (Robitussin Ac Liquid Cup) 10 ml Q4H PRN PO cough; Start 09/02/18 at 13:00 Verapamil HCl (Isoptin Sr) 120 mg DAILY PO Last administered on 09/04/18 09:46; Admin Dose 120 MG; Start 09/03/18 at 11:00 Cefepime HCl 50 ml @ 100 mls/hr Q12 IVPB Last administered on 09/04/18 09:46; Admin Dose 100 MLS/HR; Start 09/03/18 at 21:00 Levofloxacin/ Dextrose 150 ml @ 100 mls/hr Q24H IVPB Last administered on 09/03/18 17:41; Admin Dose 100 MLS/HR; Start 09/03/18 at 13:30 Enoxaparin Sodium (Lovenox) 40 mg DAILY SC Last administered on 09/04/18 09:56; Admin Dose 40 MG; Start 09/04/18 at 09:00 Levalbuterol (Xopenex Neb) 1.25 mg Q4 HHN Last administered on 09/04/18 07:29; Admin Dose 1.25 MG; Start 09/03/18 at 21:00 Levalbuterol (Xopenex Neb) 1.25 mg Q2H RESP THERAPY PRN HHN SHORTNESS OF BREATH; Start 09/03/18 at 21:00 ANGELES KIDD MD Sep 04, 2018 11:04
[2018-09-04] MEDS: AZITHROMYCIN 500MG/NS (PMX) 250 ML IVPB SCH (11:21)
--- NOTE | 2018-09-04 11:22 | CONS ---
DATE OF ADMISSION: 09/02/2018 DATE OF CONSULTATION: REASON FOR CONSULT: Abnormal chest CT and hypoxemia. HISTORY OF PRESENT ILLNESS: This is a pleasant 28-year-old gentleman with history of smoking, presen ts with several-day history of increasing shortness of breath, orthopnea, PND, found to have signific ant multiple bilateral infiltrates on chest CT and a 4 cm adrenal mass. The patient has no recent tr stevenson history. No sick contacts. No weight loss, no hemoptysis or hematemesis. Smokes less than 1 p ack per day. Works in construction. No history of asthma. Additionally, no leukocytosis. Arterial blood gas demonstrates patient requiring high flow O2 at 100%. PAST MEDICAL HISTORY: As above. MEDICATIONS: Per chart. ALLERGIES: NONE. SOCIAL HISTORY: Tobacco history as above. PHYSICAL EXAMINATION: GENERAL: Moderately obese gentleman, awake, alert, oriented, comfortable at rest, talking in full in complete sentences. VITAL SIGNS: Currently afebrile, pulse is 100, blood pressure 134/79, O2 saturation 96% on 100% FIO2 , 35 liters per minute. NECK: Supple. No JVD or lymphadenopathy. CARDIAC: S1, S2, no added sounds or murmurs. CHEST: Diminished air entry bilaterally. ABDOMEN: Soft, nontender. No guarding or rebound. EXTREMITIES: No cyanosis, clubbing. NEUROLOGIC: Grossly intact. No focal deficits. LABORATORY DATA: White count 7.8, hemoglobin 14.6, platelets of 262. Chemistry within normal limits . IMPRESSION AND PLAN: 1. Acute hypoxemic respiratory failure with multiple infiltrates throughout the lung, concerning for possible septic emboli, atypical pneumonia and/or vasculitic process. I will check C-ANCA and P-ANC A and TGBNm, and QuantiFERON Gold, ultimately patient may require a lung biopsy which should be performed under video-assisted thorascopic surgery. Dictated By: DG BRYAN MD SV/NTS Conf#: [id number] DID#: [id number] CC: ANGELES KIDD MD; RAMSEY MONREAL MD;*EndCC*
--- NOTE | 2018-09-04 12:29 | PN ---
Date/Time of Note Date/Time of Note DATE: 09/04/18 TIME: 12:28 Assessment/Plan VTE Prophylaxis Risk score (from Ns)>0 risk: 1 SCD applied (from [facility]): No SCD contraindicated: other Pharmacological prophylaxis: LMWH Lines/Catheters IV Catheter Type (from [facility]): [place]ine Lock Assessment/Plan Hospital Course SUBJECTIVE: Continues to have dyspnea and cough. Remains on high flow oxygen. OBJECTIVE: Physical Exam General: Morbidly obese, 28 year-old male lying in bed in no apparent distress. HEENT: Normocephalic, atraumatic. Eyes: Anicteric sclerae, conjunctivae clear. ENT: Nasal septum midline, oral mucosa moist. Neck supple, no JVD noticed. Respiratory: Bilaterally diminished breath sounds. Use of accessory muscles of respiration. Bilateral rhonchi. Cardiovascular: S1, S2 heard. Regular rate and rhythm. Abdomen: Soft, nontender, and nondistended. Bowel sounds positive in all 4 quadrants. Genitourinary: Deferred. Extremities: No cyanosis, no clubbing, no edema. Peripheral pulses palpable. Neurologic: Cranial nerves II through XII grossly intact. The patient is awake, alert, and oriented. Skin: Normal skin turgor. No skin rashes. Labs & Vitals per chart ASSESSMENT & PLAN 28-year-old with comorbidities including obesity who was recently treated for upper respiratory tract infection. The patient came back to the emergency room on 09/02/2018 with fevers and cough. The chest CT showed diffuse multifocal consolidations bilaterally. The patient also had underlying febrile illness, tachycardia, and lactic acidosis. The patient was admitted to inpatient setting for further treatment and evaluation. 1. Sepsis with underlying febrile illness , tachycardia, and lactic acidosis, secondary to underlying community acquired pneumonia. -Continue antimicrobials. -Pancultures negative so far. -Follow ID recommendations 2. Multifocal pneumonia. -Atypical in nature. -Obtain studies for atypical pneumonia including coccidioidomycosis, histoplasmosis, and cryptococcosis. -Appreciate pulmonary input. 3. Acute hypoxic respiratory failure. -Most probably secondary to underlying multifocal pneumonia. -Continue supplemental oxygen -Continue inhaled bronchodilators. 4. Left adrenal mass. -Being evaluated by endocrinology. -Follow endocrinology recommendations. 5. Obesity -BMI more than 38. -Will advise weight reduction. 6. Fluids, electrolytes, and nutrition. -Regular diet. 7. DVT prophylaxis. -Subcutaneous Lovenox. 8. Plan. -Continue antimicrobials as per ID. -Await clinical improvement. The patient was seen in collaboration with Dr. Ingram. Result Diagram: 09/04/18 0555 09/04/18 0555 Results 24hrs Laboratory Tests Test 09/03/18 16:26 09/03/18 23:40 09/04/18 05:55 HIV (1&2) Antibody NEGATIVE Blood Gas Specimen Source Blood arterial Arterial Blood Date Drawn 09/04/2018 12:15:34 AM Arterial Blood pH 7.469 H (Temp corrected) Arterial Blood pCO2 34.4 L (Temp correct) Arterial Blood pO2 66.0 L (Temp corrected) Arterial Blood HCO3 24.4 Arterial Blood Base Excess 1.3 Arterial Blood 93.6 L Oxygen Saturation Dorian Test ACCEPTAB Arterial Blood Gas Left Radial Puncture Site Arterial 0.3 Blood Carboxyhemoglobin Arterial Blood Methemoglobin 0.3 Blood Gas A-a O2 324.0 H Differential Oxyhemoglobin Percent 93.0 Blood Gas Temperature 37.0 Blood Gas Actual 33 Respiration Rate Blood Gas Modality HFNC FiO2 60.0 Blood Gas Notified Whom MA Blood Gas Notified Time 09/04/2018 12:37:23 AM White Blood Count 7.8 Red Blood Count 4.95 Hemoglobin 14.9 Hematocrit 44.2 Mean Corpuscular Volume 89.3 Mean Corpuscular Hemoglobin 30.1 Mean Corpuscular 33.7 Hemoglobin Concent Red Cell Distribution Width 13.0 Platelet Count 262 Mean Platelet Volume 9.4 Immature Granulocytes % 0.300 Neutrophils % 84.3 H Lymphocytes % 10.8 L Monocytes % 4.5 Eosinophils % 0.0 Basophils % 0.1 Nucleated Red Blood Cells % 0.0 Immature Granulocytes # 0.020 Neutrophils # 6.6 Lymphocytes # 0.8 Monocytes # 0.4 Eosinophils # 0.0 Basophils # 0.0 Nucleated Red Blood Cells # 0.0 Sodium Level 140 Potassium Level 3.8 Chloride Level 105 Carbon Dioxide Level 26 Anion Gap 9 Blood Urea Nitrogen 11 Creatinine 0.60 L Est Glomerular Filtrat > 60 Rate mL/min Glucose Level 101 Calcium Level 8.3 L Phosphorus Level 2.7 Magnesium Level 2.3 Triglycerides Level 158 H Cholesterol Level 89 L LDL Cholesterol, Calculated 41 HDL Cholesterol 16 L Cholesterol/HDL Ratio 5.5 Exam/Review of Systems Exam Vitals Vital Signs Date Temp Pulse Resp B/P (MAP) Pulse Ox O2 O2 Flow FiO2 Time Delivery Rate 09/04/18 98.6 112 20 147/81 95 Nasal 11:31 (103) Cannula 09/04/18 100 07:28 09/03/18 15.0 20:02 Intake and Output 09/03/18 09/03/18 09/04/18 1515:00 23:00 07:00 IntakeIntake Total 1250 ml 1600 ml 750 ml BalanceBalance 1250 ml 1600 ml 750 ml Results Results 24hrs Laboratory Tests Test 09/03/18 16:26 09/03/18 23:40 09/04/18 05:55 HIV (1&2) Antibody NEGATIVE Blood Gas Specimen Source Blood arterial Arterial Blood Date Drawn 09/04/2018 12:15:34 AM Arterial Blood pH 7.469 H (Temp corrected) Arterial Blood pCO2 34.4 L (Temp correct) Arterial Blood pO2 66.0 L (Temp corrected) Arterial Blood HCO3 24.4 Arterial Blood Base Excess 1.3 Arterial Blood 93.6 L Oxygen Saturation Dorian Test ACCEPTAB Arterial Blood Gas Left Radial Puncture Site Arterial 0.3 Blood Carboxyhemoglobin Arterial Blood Methemoglobin 0.3 Blood Gas A-a O2 324.0 H Differential Oxyhemoglobin Percent 93.0 Blood Gas Temperature 37.0 Blood Gas Actual 33 Respiration Rate Blood Gas Modality HFNC FiO2 60.0 Blood Gas Notified Whom MA Blood Gas Notified Time 09/04/2018 12:37:23 AM White Blood Count 7.8 Red Blood Count 4.95 Hemoglobin 14.9 Hematocrit 44.2 Mean Corpuscular Volume 89.3 Mean Corpuscular Hemoglobin 30.1 Mean Corpuscular 33.7 Hemoglobin Concent Red Cell Distribution Width 13.0 Platelet Count 262 Mean Platelet Volume 9.4 Immature Granulocytes % 0.300 Neutrophils % 84.3 H Lymphocytes % 10.8 L Monocytes % 4.5 Eosinophils % 0.0 Basophils % 0.1 Nucleated Red Blood Cells % 0.0 Immature Granulocytes # 0.020 Neutrophils # 6.6 Lymphocytes # 0.8 Monocytes # 0.4 Eosinophils # 0.0 Basophils # 0.0 Nucleated Red Blood Cells # 0.0 Sodium Level 140 Potassium Level 3.8 Chloride Level 105 Carbon Dioxide Level 26 Anion Gap 9 Blood Urea Nitrogen 11 Creatinine 0.60 L Est Glomerular Filtrat > 60 Rate mL/min Glucose Level 101 Calcium Level 8.3 L Phosphorus Level 2.7 Magnesium Level 2.3 Triglycerides Level 158 H Cholesterol Level 89 L LDL Cholesterol, Calculated 41 HDL Cholesterol 16 L Cholesterol/HDL Ratio 5.5 Medications Medication Current Medications Azithromycin 250 ml @ 250 mls/hr Q24H IVPB Last administered on 09/04/18 11:21; Admin Dose 250 MLS/HR; Start 09/03/18 at 10:00; Stop 09/06/18 at 09:59 Albuterol (Proventil 0.083% (Neb)) 2.5 mg Q2H RESP THERAPY PRN HHN SHORTNESS OF BREATH Last administered on 09/02/18 15:57; Admin Dose 2.5 MG; Start 09/02/18 at 13:00 Guaifenesin/ Codeine Phosphate (Robitussin Ac Liquid Cup) 10 ml Q4H PRN PO cough; Start 09/02/18 at 13:00 Verapamil HCl (Isoptin Sr) 120 mg DAILY PO Last administered on 09/04/18 09:46; Admin Dose 120 MG; Start 09/03/18 at 11:00 Cefepime HCl 50 ml @ 100 mls/hr Q12 IVPB Last administered on 09/04/18 09:46; Admin Dose 100 MLS/HR; Start 09/03/18 at 21:00 Levofloxacin/ Dextrose 150 ml @ 100 mls/hr Q24H IVPB Last administered on 09/03/18 17:41; Admin Dose 100 MLS/HR; Start 09/03/18 at 13:30 Enoxaparin Sodium (Lovenox) 40 mg DAILY SC Last administered on 09/04/18 09:56; Admin Dose 40 MG; Start 09/04/18 at 09:00 Levalbuterol (Xopenex Neb) 1.25 mg Q4 HHN Last administered on 09/04/18 07:29; Admin Dose 1.25 MG; Start 09/03/18 at 21:00 Levalbuterol (Xopenex Neb) 1.25 mg Q2H RESP THERAPY PRN HHN SHORTNESS OF BREATH; Start 09/03/18 at 21:00 Dexamethasone (Decadron) 1 mg ONCE ONCE PO ; Start 09/04/18 at 23:15; Stop 09/04/18 at 23:16 REDDY RYAN NP Sep 04, 2018 12:29
[2018-09-04] MEDS: LEVOFLOXACIN 750MG/D5W (PMX) 150 ML IVPB SCH (13:00)
--- NOTE | 2018-09-04 14:30 | CONS ---
Assessment/Plan Assessment/Plan Hospital Course (Demo Recall) Patient is awake still with significant tachypnea, he is on high flow oxygen in no distress afebrile, tachycardic T-max yesterday of 100.40 current 98.6 pulse 102 respirations 26 blood pressure 147/81 saturation 95 100% WBC 7.8 neutrophils 84.3 BUN 11 creatinine 0.6 Antimicrobials: Levaquin cefepime Blood urine and influenza swab negative CT of the chest on admission revealed diffuse multifocal consolidations bilaterally. Left adrenal gland myelolipoma partially visualized and measuring up to 8.5 x 7 cm. Physical examination: This is a morbidly obese well-developed middle-aged man who is lying comfortably in bed. Head atraumatic normocephalic, sclera nonicteric. Neck is obese, chest rise symmetrical breath sounds diminished. Heart: S1-S2. Abdomen soft bowel sounds present. Extremities without cyanosis. Assessment: 1. Sepsis, present on admission 2. Acute hypoxemic respiratory failure 3. Pneumonia with abnormal chest CT 4. Morbid obesity 5. Adrenal mass Plan: Clinically unchanged, pulmonary recommendations noted, continue on current antibiotics for now. Patient may require lung biopsy done by cardiothoracic surgery Consultation Date/Type/Reason Admit Date/Time Sep 02, 2018 at 09:22 Initial Consult Date 09/03/18 Type of Consult id Requesting Provider: RAMSEY MONREAL Date/Time of Note DATE: 09/04/18 TIME: 14:27 Exam/Review of Systems Exam Vitals Vital Signs Date Temp Pulse Resp B/P (MAP) Pulse Ox O2 O2 Flow FiO2 Time Delivery Rate 09/04/18 102 26 95 100 12:30 09/04/18 98.6 147/81 Nasal 11:31 (103) Cannula 09/03/18 15.0 20:02 Intake and Output 09/03/18 09/03/18 09/04/18 1515:00 23:00 07:00 IntakeIntake Total 1250 ml 1600 ml 750 ml BalanceBalance 1250 ml 1600 ml 750 ml Results Result Diagram: 09/04/18 0555 09/04/18 0555 Results 24hrs Laboratory Tests Test 09/03/18 16:26 09/03/18 23:40 09/04/18 05:55 HIV (1&2) Antibody NEGATIVE Blood Gas Specimen Source Blood arterial Arterial Blood Date Drawn 09/04/2018 12:15:34 AM Arterial Blood pH 7.469 H (Temp corrected) Arterial Blood pCO2 34.4 L (Temp correct) Arterial Blood pO2 66.0 L (Temp corrected) Arterial Blood HCO3 24.4 Arterial Blood Base Excess 1.3 Arterial Blood 93.6 L Oxygen Saturation Dorian Test ACCEPTAB Arterial Blood Gas Left Radial Puncture Site Arterial 0.3 Blood Carboxyhemoglobin Arterial Blood Methemoglobin 0.3 Blood Gas A-a O2 324.0 H Differential Oxyhemoglobin Percent 93.0 Blood Gas Temperature 37.0 Blood Gas Actual 33 Respiration Rate Blood Gas Modality HFNC FiO2 60.0 Blood Gas Notified Whom MA Blood Gas Notified Time 09/04/2018 12:37:23 AM White Blood Count 7.8 Red Blood Count 4.95 Hemoglobin 14.9 Hematocrit 44.2 Mean Corpuscular Volume 89.3 Mean Corpuscular Hemoglobin 30.1 Mean Corpuscular 33.7 Hemoglobin Concent Red Cell Distribution Width 13.0 Platelet Count 262 Mean Platelet Volume 9.4 Immature Granulocytes % 0.300 Neutrophils % 84.3 H Lymphocytes % 10.8 L Monocytes % 4.5 Eosinophils % 0.0 Basophils % 0.1 Nucleated Red Blood Cells % 0.0 Immature Granulocytes # 0.020 Neutrophils # 6.6 Lymphocytes # 0.8 Monocytes # 0.4 Eosinophils # 0.0 Basophils # 0.0 Nucleated Red Blood Cells # 0.0 Sodium Level 140 Potassium Level 3.8 Chloride Level 105 Carbon Dioxide Level 26 Anion Gap 9 Blood Urea Nitrogen 11 Creatinine 0.60 L Est Glomerular Filtrat > 60 Rate mL/min Glucose Level 101 Calcium Level 8.3 L Phosphorus Level 2.7 Magnesium Level 2.3 Triglycerides Level 158 H Cholesterol Level 89 L LDL Cholesterol, Calculated 41 HDL Cholesterol 16 L Cholesterol/HDL Ratio 5.5 Medications Medication Current Medications Azithromycin 250 ml @ 250 mls/hr Q24H IVPB Last administered on 09/04/18at 11:21; Admin Dose 250 MLS/HR; Start 09/03/18 at 10:00; Stop 09/06/18 at 09:59 Albuterol (Proventil 0.083% (Neb)) 2.5 mg Q2H RESP THERAPY PRN HHN SHORTNESS OF BREATH Last administered on 09/02/18at 15:57; Admin Dose 2.5 MG; Start 09/02/18 at 13:00 Guaifenesin/ Codeine Phosphate (Robitussin Ac Liquid Cup) 10 ml Q4H PRN PO cough; Start 09/02/18 at 13:00 Verapamil HCl (Isoptin Sr) 120 mg DAILY PO Last administered on 09/04/18at 09:46; Admin Dose 120 MG; Start 09/03/18 at 11:00 Cefepime HCl 50 ml @ 100 mls/hr Q12 IVPB Last administered on 09/04/18 09:46; Admin Dose 100 MLS/HR; Start 09/03/18 at 21:00 Levofloxacin/ Dextrose 150 ml @ 100 mls/hr Q24H IVPB Last administered on 09/04/18 13:00; Admin Dose 100 MLS/HR; Start 09/03/18 at 13:30 Enoxaparin Sodium (Lovenox) 40 mg DAILY SC Last administered on 09/04/18 09:56; Admin Dose 40 MG; Start 09/04/18 at 09:00 Levalbuterol (Xopenex Neb) 1.25 mg Q4 HHN Last administered on 09/04/18at 12:29; Admin Dose 1.25 MG; Start 09/03/18 at 21:00 Levalbuterol (Xopenex Neb) 1.25 mg Q2H RESP THERAPY PRN HHN SHORTNESS OF BREATH; Start 09/03/18 at 21:00 Dexamethasone (Decadron) 1 mg ONCE ONCE PO ; Start 09/04/18 at 23:15; Stop 09/04/18 at 23:16 CRISTAL MELLO NP Sep 04, 2018 14:30
[2018-09-04] MEDS ORDERED: IOHEXOL 300MG/ML 150 ML BTL ONE (15:08)
[2018-09-04] MEDS ORDERED: SOD CHLORIDE 0.9% 100 ML ONE (15:08)
--- NOTE | 2018-09-04 18:24 | RADRPT ---
Echocardiogram Report Patient Name: JODI COLEMANPatient ID: [id number] : 1990 (28y 7m)Study Date: 09/04/2018 2:47:58 PM Gender: Julio Cesarcession #: [id number] Tech: AYDEN Location: Ref.Physician: REDDY RYAN Height(Cm): BSA: Weight(Kg): Quality: GoodAccount #: Procedures: Echocardiographic Report: Transthoracic echocardiogram with complete 2D, M-Mode, and doppler examination. Indications: Endocarditis. Measurements: 2D/M Mode Doppler Measurement Value Normal Range Measurement Value Normal Range LVIDd 2D 4.8 [ 4.2 - 5.8 ] cm NELSON Vmax 2.4 [ 2.0 - 4.0 ] cm2 LVIDs 2D 3.5 [ 2.5 - 4.0 ] cm AV Mean Simone 1.0 [ 70.0 - 90.0 ] cm/sec LVPWd 2D 1.1 [ 0.6 - 1.0 ] cm AV Mean PG 5.0 [ 2.0 - 4.0 ] mmHg IVSd 2D 1.1 [ 0.6 - 1.0 ] cm AV Peak Simone 1.4 [ 100.0 - 170.0 ] cm/sec IVS/LVPW 2D 1.0 ratio AV Peak PG 8.0 [ 2.0 - 9.0 ] mmHg LVOT Diam 1.9 [ 2.3 - 2.9 ] cm AV VTI 20.3 cm LVOT Area 2.8 cm2 LVOT Peak Simone 1.2 [ 70.0 - 110.0 ] cm/sec LVOT Peak PG 6.0 [ 2.0 - 6.0 ] mmHg MV E Peak Simone 0.8 [ 60.0 - 130.0 ] cm/sec MV A Peak Simone 0.6 [ 100.0 - 120.0 ] cm/sec MV E/A 1.3 [ 0.8 - 1.5 ] ratio MV Decel Time 236 [ 104 - 258 ] msec Lat E` Simone 0.1 [ 10.0 - 15.0 ] cm/sec Med E` Simone 0.1 cm/sec MV E/A 1.3 [ 0.8 - 1.5 ] ratio PV Peak Simone 1.0 [ 40.0 - 80.0 ] cm/sec PV Peak PG 4.0 mmHg RA Pressure 3.0 mmHg Findings: Left Ventricle: Lower limits of normal systolic function. Normal left ventricular cavity size. Normal left ventricular wall thickness. Ejection fraction is visually estimated at 50-55 %. Tissue Doppler/Mitral Doppler indices are consistent with pseudonormalization with mildly elevated left atrial pressure (Stage II diastolic dysfunction). Right Ventricle: Normal right ventricular size. Normal right ventricular systolic function. Left Atrium: The left atrium is normal in size. Right Atrium: The right atrium is normal in size. Mitral Valve: Normal appearance and function of the mitral valve with trace physiologic regurgitation. No evidence of endocarditis. Aortic Valve: Normal appearance of the aortic valve. No significant aortic stenosis or insufficiency. No evidence of endocarditis. Tricuspid Valve: Normal appearance and function of the tricuspid valve with trace physiologic regurgitation. No evidence of endocarditis. Pulmonic Valve: Normal pulmonic valve appearance. Pericardium: Normal pericardium with no significant pericardial effusion. Aorta: Normal aortic root. IVC: Normal size and normal respiratory collapse consistent with normal right atrial pressure. Conclusions: Lower limits of normal systolic function. Normal left ventricular cavity size. Normal left ventricular wall thickness. Ejection fraction is visually estimated at 50-55 %. Tissue Doppler/Mitral Doppler indices are consistent with pseudonormalization with mildly elevated left atrial pressure (Stage II diastolic dysfunction). Normal appearance and function of the mitral valve with trace physiologic regurgitation. No evidence of endocarditis. Normal appearance of the aortic valve. No significant aortic stenosis or insufficiency. No evidence of endocarditis. Normal appearance and function of the tricuspid valve with trace physiologic regurgitation. No evidence of endocarditis. No definite evidence of valvular vegetations on any of the well visualized valvular apparati. Electronically Signed By: Curtis Cha 2018-09-04 18:24:00 PDT
[2018-09-04] MEDS ORDERED: DEXAMETHASONE 1 MG TAB PO ONE (23:15)
[2018-09-05] VITALS (10 sets, daily range): BP systolic 108–130; BP diastolic 64–80; PULSE 77–107; RESP 17–20
[2018-09-05] MEDS: LEVALBUTEROL (NEB) 1.25 MG/0.5 ML AMP HHN SCH ×6 (00:48→21:00)
--- NOTE | 2018-09-05 07:03 | CONS ---
DATE OF ADMISSION: 09/02/2018 DATE OF CONSULTATION: HISTORY OF PRESENT ILLNESS: The patient is a 28-year-old single male who was admitted to [facility] Emergency Room for this second complaint of a 3-day history of fever, cough, nausea, and vomiting. He was originally seen in the Emergency Room and given a Z-VANESSA. Apparently, he did not respond to t his and so he returned and was admitted on 09/02/2018. On admission, the patient had a temperature o f 103.1 degrees, pulse was variable from 77 to 123, respirations similarly was variable from 18 to 22 with oxygen saturation between 85 to 90% on nasal cannula. The chest x-ray revealed multiple round nodular bilateral densities, which was a differential being infection versus carcinoma. There is a l eft adrenal incidentaloma 8.5 x [address] scan and there is also a fatty liver seen at that time . The patient's urinalysis was basically normal with specific gravity of 0.24, pH 6, +1 hemoglobin, negative leukocyte esterase, +2 protein. Electrolytes were within normal limits. BUN and creatinine were 11 and 0.9 respectively. Glucose was 143. The patient initially was treated with ceftriaxone and Zithromax, but this was later changed to cefepime and Levaquin. Since admission, the patient's t emperature has come down to as low as 100.4 without subsequent elevation. The additional addendum of information includes that before the patient became ill he traveled to the [facility] and spent just a few hours there in a relatively uncrowded condition, but left because it was cold. Also, he had stated that he recently was going more going to the gym recently and lost 11 pounds, going from 2 20 to 209 pounds. PAST SURGICAL HISTORY: Cholecystectomy and a post-cholecystectomy dumping syndrome in 1999. He had a past history of cholecystitis. ALLERGIES: THE PATIENT HAS NO KNOWN ALLERGIES. MEDICATIONS: He takes no regular medication. PHYSICAL EXAMINATION GENERAL: Physical examination today reveals an alert, oriented, obese male lying supine in bed. Currently, he is winding down a respiratory treatment. VITAL SIGNS: The pulse is 116, respirations are 24, his oximetry is 98%, and last temperature was 99 .9. HEENT: The pupils are constricted, round and react to light. Extraocular movements are full. The m outh had somewhat thickened secretions on the mucous membranes. NECK: Supple, no jugular venous distention. CHEST: Scattered occasional rhonchi. Slight prolongation of expiration. ABDOMEN: Soft, obese. No palpable organs. EXTREMITIES: No edema, cyanosis or clubbing. NEUROLOGIC: Grossly within normal limits. INITIAL IMPRESSION: 1. Systemic inflammatory response. 2. Bilateral multifocal pneumonia, rule out Staphylococcus aureus. 3. A large left adrenal incidentaloma. 4. Fatty liver. 5. Obesity. RECOMMENDATIONS: Continue present treatment. Obtain serology for coccidioides immitis. I would sug gest considering biopsying both the incidentaloma in the left adrenal and one of the lung nodules unl ess the latter clears up appropriately as an infection should. Dictated By: Spenser MANN MD EC/NTS Conf#: [id number] DID#: [id number] CC: RAMSEY MONREAL MD;*EndCC*
[2018-09-05] MEDS: CEFEPIME 1GM/50 ML (PMX) 50 ML IVPB SCH ×2 (09:04→23:45)
[2018-09-05] MEDS: VERAPAMIL (SR) 120 MG TAB PO SCH (09:04)
[2018-09-05] MEDS: ENOXAPARIN 40 MG/0.4 ML SYG SC SCH (09:15)
--- NOTE | 2018-09-05 09:43 | CONS ---
Assessment/Plan Assessment/Plan Assessment/Plan (Daily) Assessment recommendations; 1. Patient admitted with diffuse bilateral pneumonia etiology is unclear. Possibly septic embolism to the lungs versus vasculitis. Patient clinically however has improved. Still requiring high flow nasal cannula at 90% FiO2. 2. Mild anemia. No history of any hemoptysis or hematuria. Continue current supportive care. Obtain follow-up chest x-ray [address] recommendations once chest x-ray is obtained. Meanwhile connective tissue disease workup is pending. Consultation Date/Type/Reason Admit Date/Time Sep 02, 2018 at 09:22 Initial Consult Date 09/03/18 Type of Consult Pulmonary Patient condition is tenuous but stable. Denies any shortness of breath at rest. According to the patient he feels markedly improved since admission. General exam; young male, awake alert, on high flow nasal cannula. Currently in no distress. Reason for Consultation HEENT exam; supple neck, no JVD. No lymphadenopathy. Midline trachea. No thyromegaly. Pharynx is clear. Patient has fair dentition. Chest exam; diminished breath sounds bilaterally. S1-S2 audible, no murmurs. Regular rhythm. Abdomen exam; soft, protuberant. No organomegaly. Nontender. Bowel sounds audible. Extremity exam; no peripheral edema or clubbing. Pulses 1+. No rash. PLUG CUTTER exam; no focal deficit. Requesting Provider: RAMSEY MONREAL Date/Time of Note DATE: 09/05/18 TIME: 09:41 Exam/Review of Systems Exam Vitals Vital Signs Date Temp Pulse Resp B/P (MAP) Pulse Ox O2 O2 Flow FiO2 Time Delivery Rate 09/05/18 94 90 08:09 09/05/18 83 18 08:09 09/05/18 98.1 128/80 07:38 (96) 09/04/18 Nasal 16:00 Cannula 09/03/18 15.0 20:02 Intake and Output 09/04/18 09/04/18 09/05/18 1515:00 23:00 07:00 IntakeIntake Total 1400 ml 1250 ml OutputOutput Total 1200 ml BalanceBalance 200 ml 1250 ml Results Result Diagram: 09/05/18 0539 09/05/18 0539 Results 24hrs Laboratory Tests Test 09/05/18 05:39 White Blood Count 7.0 Red Blood Count 5.22 Hemoglobin 15.7 Hematocrit 47.1 Mean Corpuscular Volume 90.2 Mean Corpuscular Hemoglobin 30.1 Mean Corpuscular Hemoglobin Concent 33.3 Red Cell Distribution Width 13.0 Platelet Count 323 # Mean Platelet Volume 9.5 Immature Granulocytes % 1.000 H Neutrophils % 84.6 H Lymphocytes % 9.6 L Monocytes % 4.6 Eosinophils % 0.1 Basophils % 0.1 Nucleated Red Blood Cells % 0.0 Immature Granulocytes # 0.070 H Neutrophils # 5.9 Lymphocytes # 0.7 L Monocytes # 0.3 Eosinophils # 0.0 Basophils # 0.0 Nucleated Red Blood Cells # 0.0 Sodium Level 140 Potassium Level 4.1 Chloride Level 103 Carbon Dioxide Level 27 Anion Gap 10 Blood Urea Nitrogen 12 Creatinine 0.57 L Est Glomerular Filtrat Rate mL/min > 60 Glucose Level 98 Calcium Level 8.0 L Phosphorus Level 3.4 Magnesium Level 2.8 H Medications Medication Current Medications Azithromycin 250 ml @ 250 mls/hr Q24H IVPB Last administered on 09/04/18 11:21; Admin Dose 250 MLS/HR; Start 09/03/18 at 10:00; Stop 09/06/18 at 09:59 Albuterol (Proventil 0.083% (Neb)) 2.5 mg Q2H RESP THERAPY PRN HHN SHORTNESS OF BREATH Last administered on 09/02/18at 15:57; Admin Dose 2.5 MG; Start 09/02/18 at 13:00 Guaifenesin/ Codeine Phosphate (Robitussin Ac Liquid Cup) 10 ml Q4H PRN PO cough; Start 09/02/18 at 13:00 Verapamil HCl (Isoptin Sr) 120 mg DAILY PO Last administered on 09/05/18at 09:04; Admin Dose 120 MG; Start 09/03/18 at 11:00 Cefepime HCl 50 ml @ 100 mls/hr Q12 IVPB Last administered on 09/05/18at 09:04; Admin Dose 100 MLS/HR; Start 09/03/18 at 21:00 Levofloxacin/ Dextrose 150 ml @ 100 mls/hr Q24H IVPB Last administered on 09/04/18at 13:00; Admin Dose 100 MLS/HR; Start 09/03/18 at 13:30 Enoxaparin Sodium (Lovenox) 40 mg DAILY SC Last administered on 09/05/18at 09:15; Admin Dose 40 MG; Start 09/04/18 at 09:00 Levalbuterol (Xopenex Neb) 1.25 mg Q4 HHN Last administered on 09/05/18at 08:07; Admin Dose 1.25 MG; Start 09/03/18 at 21:00 Levalbuterol (Xopenex Neb) 1.25 mg Q2H RESP THERAPY PRN HHN SHORTNESS OF BREATH; Start 09/03/18 at 21:00 RYAN SAL Sep 05, 2018 09:43
[2018-09-05] MEDS: AZITHROMYCIN 500MG/NS (PMX) 250 ML IVPB SCH (10:11)
--- NOTE | 2018-09-05 12:34 | CONS ---
Assessment/Plan Assessment/Plan Hospital Course (Demo Recall) Patient is awake and feels better, is still on high flow oxygen was overnight Antimicrobials: Levaquin cefepime Blood urine and influenza swab negative CT of the chest on admission revealed diffuse multifocal consolidations bilaterally. Left adrenal gland myelolipoma partially visualized and measuring up to 8.5 x 7 cm. Physical examination: This is a morbidly obese well-developed middle-aged man who is lying comfortably in bed. Head atraumatic normocephalic, sclera nonicteric. Neck is obese, chest rise symmetrical breath sounds diminished. Heart: S1-S2. Abdomen soft bowel sounds present. Extremities without cyanosis. Assessment: 1. Sepsis, present on admission 2. Acute hypoxemic respiratory failure 3. Pneumonia with abnormal chest CT 4. Morbid obesity 5. Adrenal mass Plan: Clinically improving continue antibiotics, follow pulmonary recommendations, pending final workup Consultation Date/Type/Reason Admit Date/Time Sep 02, 2018 at 09:22 Initial Consult Date 09/03/18 Type of Consult id Requesting Provider: RAMSEY MONREAL Date/Time of Note DATE: 09/05/18 TIME: 12:33 Exam/Review of Systems Exam Vitals Vital Signs Date Temp Pulse Resp B/P (MAP) Pulse Ox O2 O2 Flow FiO2 Time Delivery Rate 09/05/18 84 18 95 90 12:22 09/05/18 97.9 127/79 11:26 (95) 09/04/18 Nasal 16:00 Cannula 09/03/18 15.0 20:02 Intake and Output 09/04/18 09/04/18 09/05/18 1515:00 23:00 07:00 IntakeIntake Total 1400 ml 1250 ml OutputOutput Total 1200 ml BalanceBalance 200 ml 1250 ml Results Result Diagram: 09/05/18 0539 09/05/18 0539 Results 24hrs Laboratory Tests Test 09/05/18 05:39 White Blood Count 7.0 Red Blood Count 5.22 Hemoglobin 15.7 Hematocrit 47.1 Mean Corpuscular Volume 90.2 Mean Corpuscular Hemoglobin 30.1 Mean Corpuscular Hemoglobin Concent 33.3 Red Cell Distribution Width 13.0 Platelet Count 323 # Mean Platelet Volume 9.5 Immature Granulocytes % 1.000 H Neutrophils % 84.6 H Lymphocytes % 9.6 L Monocytes % 4.6 Eosinophils % 0.1 Basophils % 0.1 Nucleated Red Blood Cells % 0.0 Immature Granulocytes # 0.070 H Neutrophils # 5.9 Lymphocytes # 0.7 L Monocytes # 0.3 Eosinophils # 0.0 Basophils # 0.0 Nucleated Red Blood Cells # 0.0 Sodium Level 140 Potassium Level 4.1 Chloride Level 103 Carbon Dioxide Level 27 Anion Gap 10 Blood Urea Nitrogen 12 Creatinine 0.57 L Est Glomerular Filtrat Rate mL/min > 60 Glucose Level 98 Calcium Level 8.0 L Phosphorus Level 3.4 Magnesium Level 2.8 H Medications Medication Current Medications Azithromycin 250 ml @ 250 mls/hr Q24H IVPB Last administered on 09/05/18 10:11; Admin Dose 250 MLS/HR; Start 09/03/18 at 10:00; Stop 09/06/18 at 09:59 Albuterol (Proventil 0.083% (Neb)) 2.5 mg Q2H RESP THERAPY PRN HHN SHORTNESS OF BREATH Last administered on 09/02/18 15:57; Admin Dose 2.5 MG; Start 09/02/18 at 13:00 Guaifenesin/ Codeine Phosphate (Robitussin Ac Liquid Cup) 10 ml Q4H PRN PO cough; Start 09/02/18 at 13:00 Verapamil HCl (Isoptin Sr) 120 mg DAILY PO Last administered on 09/05/18 09:04; Admin Dose 120 MG; Start 09/03/18 at 11:00 Cefepime HCl 50 ml @ 100 mls/hr Q12 IVPB Last administered on 09/05/18 09:04; Admin Dose 100 MLS/HR; Start 09/03/18 at 21:00 Levofloxacin/ Dextrose 150 ml @ 100 mls/hr Q24H IVPB Last administered on 09/04/18 13:00; Admin Dose 100 MLS/HR; Start 09/03/18 at 13:30 Enoxaparin Sodium (Lovenox) 40 mg DAILY SC Last administered on 09/05/18 09:15; Admin Dose 40 MG; Start 09/04/18 at 09:00 Levalbuterol (Xopenex Neb) 1.25 mg Q4 HHN Last administered on 09/05/18 12:22; Admin Dose 1.25 MG; Start 09/03/18 at 21:00 Levalbuterol (Xopenex Neb) 1.25 mg Q2H RESP THERAPY PRN HHN SHORTNESS OF BREATH; Start 09/03/18 at 21:00 CRISTAL MELLO NP Sep 05, 2018 12:34
--- NOTE | 2018-09-05 13:26 | CONS ---
Assessment/Plan Assessment/Plan Problems: (1) Left adrenal mass Comment: Regardless of the workup this is going to need surgical evaluation as an outpatient. He did not suppress with the overnight Dex suppression test but due to the stress of having the pneumonia this may be a false abnormality in the testing. We will go ahead and do a 24-hour urinary cortisol starting tomorrow which allow a little bit more time for him to settle down from all the stressors. They pheochromocytoma workup is still pending although I doubt that if pheochromocytoma was operational here. Consultation Date/Type/Reason Admit Date/Time Sep 02, 2018 at 09:22 Initial Consult Date 09/03/18 Type of Consult Endocrinology Reason for Consultation Adrenal mass-left; pneumonia multifocal Requesting Provider: RAMSEY MONREAL Date/Time of Note DATE: 09/05/18 TIME: 13:24 24 HR Interval Summary Free Text/Dictation Patient reports his breathing status is a little bit better. Detailed Summary Endocrine: no complaints Exam/Review of Systems Exam Vitals Vital Signs Date Temp Pulse Resp B/P (MAP) Pulse Ox O2 O2 Flow FiO2 Time Delivery Rate 09/05/18 84 18 95 90 12:22 09/05/18 97.9 127/79 11:26 (95) 09/04/18 Nasal 16:00 Cannula 09/03/18 15.0 20:02 Intake and Output 09/04/18 09/04/18 09/05/18 1414:59 22:59 06:59 IntakeIntake Total 1400 ml 1250 ml OutputOutput Total 1200 ml BalanceBalance 200 ml 1250 ml Exam No change in exam Results Result Diagram: 09/05/18 0539 09/05/18 0539 Results 24hrs Laboratory Tests Test 09/05/18 05:39 09/05/18 09:44 White Blood Count 7.0 Red Blood Count 5.22 Hemoglobin 15.7 Hematocrit 47.1 Mean Corpuscular Volume 90.2 Mean Corpuscular Hemoglobin 30.1 Mean Corpuscular Hemoglobin Concent 33.3 Red Cell Distribution Width 13.0 Platelet Count 323 # Mean Platelet Volume 9.5 Immature Granulocytes % 1.000 H Neutrophils % 84.6 H Lymphocytes % 9.6 L Monocytes % 4.6 Eosinophils % 0.1 Basophils % 0.1 Nucleated Red Blood Cells % 0.0 Immature Granulocytes # 0.070 H Neutrophils # 5.9 Lymphocytes # 0.7 L Monocytes # 0.3 Eosinophils # 0.0 Basophils # 0.0 Nucleated Red Blood Cells # 0.0 Sodium Level 140 Potassium Level 4.1 Chloride Level 103 Carbon Dioxide Level 27 Anion Gap 10 Blood Urea Nitrogen 12 Creatinine 0.57 L Est Glomerular Filtrat Rate mL/min > 60 Glucose Level 98 Calcium Level 8.0 L Phosphorus Level 3.4 Magnesium Level 2.8 H Random Cortisol 12.6 Medications Medication Current Medications Azithromycin 250 ml @ 250 mls/hr Q24H IVPB Last administered on 09/05/18 10:11; Admin Dose 250 MLS/HR; Start 09/03/18 at 10:00; Stop 09/06/18 at 09:59 Albuterol (Proventil 0.083% (Neb)) 2.5 mg Q2H RESP THERAPY PRN HHN SHORTNESS OF BREATH Last administered on 09/02/18 15:57; Admin Dose 2.5 MG; Start 09/02/18 at 13:00 Guaifenesin/ Codeine Phosphate (Robitussin Ac Liquid Cup) 10 ml Q4H PRN PO cough; Start 09/02/18 at 13:00 Verapamil HCl (Isoptin Sr) 120 mg DAILY PO Last administered on 09/05/18 09:04; Admin Dose 120 MG; Start 09/03/18 at 11:00 Cefepime HCl 50 ml @ 100 mls/hr Q12 IVPB Last administered on 09/05/18 09:04; Admin Dose 100 MLS/HR; Start 09/03/18 at 21:00 Levofloxacin/ Dextrose 150 ml @ 100 mls/hr Q24H IVPB Last administered on 09/04/18 13:00; Admin Dose 100 MLS/HR; Start 09/03/18 at 13:30 Enoxaparin Sodium (Lovenox) 40 mg DAILY SC Last administered on 09/05/18 09:15; Admin Dose 40 MG; Start 09/04/18 at 09:00 Levalbuterol (Xopenex Neb) 1.25 mg Q4 HHN Last administered on 09/05/18 12:22; Admin Dose 1.25 MG; Start 09/03/18 at 21:00 Levalbuterol (Xopenex Neb) 1.25 mg Q2H RESP THERAPY PRN HHN SHORTNESS OF BREATH; Start 09/03/18 at 21:00 ANGELES KIDD MD Sep 05, 2018 13:26
[2018-09-05] MEDS: LEVOFLOXACIN 750MG/D5W (PMX) 150 ML IVPB SCH (13:36)
--- NOTE | 2018-09-05 16:20 | PN ---
Date/Time of Note Date/Time of Note DATE: 09/05/18 TIME: 16:17 Assessment/Plan VTE Prophylaxis Risk score (from Ns)>0 risk: 1 SCD applied (from [facility] [place]): No SCD contraindicated: low risk/ambulating Pharmacological prophylaxis: LMWH Lines/Catheters IV Catheter Type (from [facility]): Saline Lock Assessment/Plan Hospital Course Assessment and plan 1. Acute hypoxic respiratory failure, mod stable continue supplemental high flow nasal cannula 2. Severe sepsis due to pneumonia, stable finish antibiotics. Ro ctd/vasculitis? Echo ok. Cocci titers pending. rpt CT down the line. 3. Obesity 4. Tobacco abuse status post counseling 5. Left adrenal mass 8 cm, 24-hour urine pending. Outpatient general surgery may be a tertiary care 6. Subclinical hyperthyroidism follow-up Subjective: No events but requiring supplemental oxygen. No fever Objective: Vital signs stable except for hypoxia Physical exam No pallor adenopathy Regular no tachy Course diminished Benign overweight No edema Result Diagram: 09/05/18 0539 09/05/18 0539 Results 24hrs Laboratory Tests Test 09/05/18 05:39 09/05/18 09:44 White Blood Count 7.0 Red Blood Count 5.22 Hemoglobin 15.7 Hematocrit 47.1 Mean Corpuscular Volume 90.2 Mean Corpuscular Hemoglobin 30.1 Mean Corpuscular Hemoglobin Concent 33.3 Red Cell Distribution Width 13.0 Platelet Count 323 # Mean Platelet Volume 9.5 Immature Granulocytes % 1.000 H Neutrophils % 84.6 H Lymphocytes % 9.6 L Monocytes % 4.6 Eosinophils % 0.1 Basophils % 0.1 Nucleated Red Blood Cells % 0.0 Immature Granulocytes # 0.070 H Neutrophils # 5.9 Lymphocytes # 0.7 L Monocytes # 0.3 Eosinophils # 0.0 Basophils # 0.0 Nucleated Red Blood Cells # 0.0 Sodium Level 140 Potassium Level 4.1 Chloride Level 103 Carbon Dioxide Level 27 Anion Gap 10 Blood Urea Nitrogen 12 Creatinine 0.57 L Est Glomerular Filtrat Rate mL/min > 60 Glucose Level 98 Calcium Level 8.0 L Phosphorus Level 3.4 Magnesium Level 2.8 H Random Cortisol 12.6 Exam/Review of Systems Exam Vitals Vital Signs Date Temp Pulse Resp B/P (MAP) Pulse Ox O2 O2 Flow FiO2 Time Delivery Rate 09/05/18 98.5 90 20 126/80 96 15:24 (95) 09/05/18 90 12:22 09/04/18 Nasal 16:00 Cannula 09/03/18 15.0 20:02 Intake and Output 09/04/18 09/04/18 09/05/18 1515:00 23:00 07:00 IntakeIntake Total 1400 ml 1250 ml OutputOutput Total 1200 ml BalanceBalance 200 ml 1250 ml Results Results 24hrs Laboratory Tests Test 09/05/18 05:39 09/05/18 09:44 White Blood Count 7.0 Red Blood Count 5.22 Hemoglobin 15.7 Hematocrit 47.1 Mean Corpuscular Volume 90.2 Mean Corpuscular Hemoglobin 30.1 Mean Corpuscular Hemoglobin Concent 33.3 Red Cell Distribution Width 13.0 Platelet Count 323 # Mean Platelet Volume 9.5 Immature Granulocytes % 1.000 H Neutrophils % 84.6 H Lymphocytes % 9.6 L Monocytes % 4.6 Eosinophils % 0.1 Basophils % 0.1 Nucleated Red Blood Cells % 0.0 Immature Granulocytes # 0.070 H Neutrophils # 5.9 Lymphocytes # 0.7 L Monocytes # 0.3 Eosinophils # 0.0 Basophils # 0.0 Nucleated Red Blood Cells # 0.0 Sodium Level 140 Potassium Level 4.1 Chloride Level 103 Carbon Dioxide Level 27 Anion Gap 10 Blood Urea Nitrogen 12 Creatinine 0.57 L Est Glomerular Filtrat Rate mL/min > 60 Glucose Level 98 Calcium Level 8.0 L Phosphorus Level 3.4 Magnesium Level 2.8 H Random Cortisol 12.6 Medications Medication Current Medications Azithromycin 250 ml @ 250 mls/hr Q24H IVPB Last administered on 09/05/18at 10:11; Admin Dose 250 MLS/HR; Start 09/03/18 at 10:00; Stop 09/06/18 at 09:59 Albuterol (Proventil 0.083% (Neb)) 2.5 mg Q2H RESP THERAPY PRN HHN SHORTNESS OF BREATH Last administered on 09/02/18at 15:57; Admin Dose 2.5 MG; Start 09/02/18 at 13:00 Guaifenesin/ Codeine Phosphate (Robitussin Ac Liquid Cup) 10 ml Q4H PRN PO cough; Start 09/02/18 at 13:00 Verapamil HCl (Isoptin Sr) 120 mg DAILY PO Last administered on 09/05/18at 09:04; Admin Dose 120 MG; Start 09/03/18 at 11:00 Cefepime HCl 50 ml @ 100 mls/hr Q12 IVPB Last administered on 09/05/18 09:04; Admin Dose 100 MLS/HR; Start 09/03/18 at 21:00 Levofloxacin/ Dextrose 150 ml @ 100 mls/hr Q24H IVPB Last administered on 09/05/18 13:36; Admin Dose 100 MLS/HR; Start 09/03/18 at 13:30 Enoxaparin Sodium (Lovenox) 40 mg DAILY SC Last administered on 09/05/18 09:15; Admin Dose 40 MG; Start 09/04/18 at 09:00 Levalbuterol (Xopenex Neb) 1.25 mg Q4 HHN Last administered on 09/05/18 12:22; Admin Dose 1.25 MG; Start 09/03/18 at 21:00 Levalbuterol (Xopenex Neb) 1.25 mg Q2H RESP THERAPY PRN HHN SHORTNESS OF BREATH; Start 09/03/18 at 21:00 TERENCE BARNES MD Sep 05, 2018 16:20
[2018-09-05] MEDS ORDERED: FAMOTIDINE 20 MG TAB PO PRN (16:30)
[2018-09-05] MEDS: LEVOFLOXACIN 750 MG TABLET PO SCH (19:35)
[2018-09-06] MEDS: LEVALBUTEROL (NEB) 1.25 MG/0.5 ML AMP HHN SCH ×6 (01:01→21:38)
[2018-09-06 01:41] VITALS: BP 123/77; PULSE 96; RESP 20
[2018-09-06] MEDS: LEVOFLOXACIN 750 MG TABLET PO SCH (06:55)
[2018-09-06 07:26] VITALS: BP 123/76; PULSE 86; RESP 20
[2018-09-06] MEDS: CEFEPIME 1GM/50 ML (PMX) 50 ML IVPB SCH ×2 (09:11→20:12)
[2018-09-06] MEDS: ENOXAPARIN 40 MG/0.4 ML SYG SC SCH (09:11)
--- NOTE | 2018-09-06 10:46 | PN ---
Date/Time of Note Date/Time of Note DATE: 09/06/18 TIME: 10:45 Assessment/Plan VTE Prophylaxis Risk score (from Ns)>0 risk: 2 SCD applied (from [facility] [place]): No SCD contraindicated: low risk/ambulating Pharmacological prophylaxis: LMWH Lines/Catheters IV [facility]ter Type (from [facility]): Peripheral IV Assessment/Plan Hospital Course Assessment and plan 1. Acute hypoxic respiratory failure, mod stable continue supplemental high flow nasal cannula 2. Severe sepsis due to pneumonia, stable finish antibiotics. Ro ctd/vasculitis? Echo ok. Cocci titers pending. rpt CT down the line. 3. Obesity 4. Tobacco abuse status post counseling 5. Left adrenal mass 8 cm, 24-hour urine pending. Outpatient general surgery may be a tertiary care 6. Subclinical hyperthyroidism follow-up S: 09/05 no events but requiring supplemental oxygen. No fever 09/06: No events fever. Still severely hypoxic on supplemental oxygen. O: Vital signs stable except for hypoxia PE No pallor jvd Regular no tachy Course diminished Benign overweight No edema Result Diagram: 09/06/187 09/06/187 Results 24hrs Laboratory Tests Test 09/06/18 04:47 White Blood Count 9.6 # Red Blood Count 5.14 Hemoglobin 15.1 Hematocrit 45.5 Mean Corpuscular Volume 88.5 Mean Corpuscular Hemoglobin 29.4 Mean Corpuscular Hemoglobin Concent 33.2 Red Cell Distribution Width 12.6 Platelet Count 437 #H Mean Platelet Volume 9.1 Immature Granulocytes % 1.700 H Neutrophils % 84.0 H Lymphocytes % 8.8 L Monocytes % 4.3 Eosinophils % 1.0 Basophils % 0.2 Nucleated Red Blood Cells % 0.0 Immature Granulocytes # 0.160 H Neutrophils # 8.0 H Lymphocytes # 0.8 Monocytes # 0.4 Eosinophils # 0.1 Basophils # 0.0 Nucleated Red Blood Cells # 0.0 Sodium Level 140 Potassium Level 3.6 Chloride Level 105 Carbon Dioxide Level 26 Anion Gap 9 Blood Urea Nitrogen 11 Creatinine 0.48 L Est Glomerular Filtrat Rate mL/min > 60 Glucose Level 95 Calcium Level 8.6 Phosphorus Level 2.9 Magnesium Level 2.6 H Exam/Review of Systems Exam Vitals Vital Signs Date Temp Pulse Resp B/P (MAP) Pulse Ox O2 O2 Flow FiO2 Time Delivery Rate 09/06/18 93 24 96 80 09:10 09/06/18 98.8 123/76 07:26 (92) 09/06/18 Nasal 01:41 Cannula 09/03/18 15.0 20:02 Intake and Output 09/05/18 09/05/18 09/06/18 1515:00 23:00 07:00 IntakeIntake Total 1400 ml 470 ml OutputOutput Total 1000 ml BalanceBalance 1400 ml -530 ml Results Results 24hrs Laboratory Tests Test 09/06/18 04:47 White Blood Count 9.6 # Red Blood Count 5.14 Hemoglobin 15.1 Hematocrit 45.5 Mean Corpuscular Volume 88.5 Mean Corpuscular Hemoglobin 29.4 Mean Corpuscular Hemoglobin Concent 33.2 Red Cell Distribution Width 12.6 Platelet Count 437 #H Mean Platelet Volume 9.1 Immature Granulocytes % 1.700 H Neutrophils % 84.0 H Lymphocytes % 8.8 L Monocytes % 4.3 Eosinophils % 1.0 Basophils % 0.2 Nucleated Red Blood Cells % 0.0 Immature Granulocytes # 0.160 H Neutrophils # 8.0 H Lymphocytes # 0.8 Monocytes # 0.4 Eosinophils # 0.1 Basophils # 0.0 Nucleated Red Blood Cells # 0.0 Sodium Level 140 Potassium Level 3.6 Chloride Level 105 Carbon Dioxide Level 26 Anion Gap 9 Blood Urea Nitrogen 11 Creatinine 0.48 L Est Glomerular Filtrat Rate mL/min > 60 Glucose Level 95 Calcium Level 8.6 Phosphorus Level 2.9 Magnesium Level 2.6 H Medications Medication Current Medications Albuterol (Proventil 0.083% (Neb)) 2.5 mg Q2H RESP THERAPY PRN HHN SHORTNESS OF BREATH Last administered on 09/02/18at 15:57; Admin Dose 2.5 MG; Start 09/02/18 at 13:00 Guaifenesin/ Codeine Phosphate (Robitussin Ac Liquid Cup) 10 ml Q4H PRN PO cough; Start 09/02/18 at 13:00 Verapamil HCl (Isoptin Sr) 120 mg DAILY PO Last administered on 09/05/18at 09:04; Admin Dose 120 MG; Start 09/03/18 at 11:00 Cefepime HCl 50 ml @ 100 mls/hr Q12 IVPB Last administered on 09/06/18at 09:11; Admin Dose 100 MLS/HR; Start 09/03/18 at 21:00 Enoxaparin Sodium (Lovenox) 40 mg DAILY SC Last administered on 09/06/18at 09:11; Admin Dose 40 MG; Start 09/04/18 at 09:00 Levalbuterol (Xopenex Neb) 1.25 mg Q4 HHN Last administered on 09/06/18at 08:53; Admin Dose 1.25 MG; Start 09/03/18 at 21:00 Levalbuterol (Xopenex Neb) 1.25 mg Q2H RESP THERAPY PRN HHN SHORTNESS OF BREATH; Start 09/03/18 at 21:00 Levofloxacin (Levaquin) 750 mg DAILY@06 PO Last administered on 09/06/18at 06:55; Admin Dose 750 MG; Start 09/05/18 at 18:00 Famotidine (Pepcid) 20 mg BID PRN PO HEARTBURN; Start 09/05/18 at 16:30 TERENCE BARNES MD Sep 06, 2018 10:46
[2018-09-06] MEDS: VERAPAMIL (SR) 120 MG TAB PO SCH (10:47)
--- NOTE | 2018-09-06 10:51 | CONS ---
Assessment/Plan Assessment/Plan Assessment/Plan (Daily) Assessment recommendations; 1. Patient admitted with severe bilateral pneumonia currently on high flow nasal cannula at 50% FiO2 25 L/min with interval improvement. 2. Possibly vasculitis, connective tissue disease workup is pending. Continue current supportive care. Chest x-ray from today is pending. Further recommendations once chest x-ray is obtained. Patient possibly may need to have an open lung biopsy performed. Consultation Date/Type/Reason Admit Date/Time Sep 02, 2018 at 09:22 Initial Consult Date 09/03/18 Type of Consult Pulmonary Patient condition is tenuous but stable. Denies any shortness of breath at rest. According to the patient he feels markedly improved since admission. General exam; young male, awake alert, on high flow nasal cannula. Currently in no distress. Requesting Provider: RAMSEY MONREAL Date/Time of Note DATE: 09/06/18 TIME: 10:49 24 HR Interval Summary Free Text/Dictation Patient's condition is stable. Denies any shortness of breath at rest. Denies any coughing, wheezing, sputum production or fever. General exam; young male, awake alert, currently in no distress. Exam/Review of Systems Exam Vitals Vital Signs Date Temp Pulse Resp B/P (MAP) Pulse Ox O2 O2 Flow FiO2 Time Delivery Rate 09/06/18 93 24 96 80 09:10 09/06/18 98.8 123/76 07:26 (92) 09/06/18 Nasal 01:41 Cannula 09/03/18 15.0 20:02 Intake and Output 09/05/18 09/05/18 09/06/18 1515:00 23:00 07:00 IntakeIntake Total 1400 ml 470 ml OutputOutput Total 1000 ml BalanceBalance 1400 ml -530 ml Exam HEENT exam; supple neck, no JVD. No lymphadenopathy. Midline trachea. No thyromegaly. Patient has good dentition. No neck masses. Chest exam; diminished breath sounds bilaterally. No added sounds. S1-S2 audible, no murmurs. Regular rhythm. Abdomen exam; soft, no organomegaly. Bowel sounds audible. Extremity exam; no peripheral edema clubbing. RN DOCUMENTATION exam; no focal deficit. Results Result Diagram: 09/06/18 0447 09/06/18446 Results 24hrs Laboratory Tests Test 09/06/18 04:47 White Blood Count 9.6 # Red Blood Count 5.14 Hemoglobin 15.1 Hematocrit 45.5 Mean Corpuscular Volume 88.5 Mean Corpuscular Hemoglobin 29.4 Mean Corpuscular Hemoglobin Concent 33.2 Red Cell Distribution Width 12.6 Platelet Count 437 #H Mean Platelet Volume 9.1 Immature Granulocytes % 1.700 H Neutrophils % 84.0 H Lymphocytes % 8.8 L Monocytes % 4.3 Eosinophils % 1.0 Basophils % 0.2 Nucleated Red Blood Cells % 0.0 Immature Granulocytes # 0.160 H Neutrophils # 8.0 H Lymphocytes # 0.8 Monocytes # 0.4 Eosinophils # 0.1 Basophils # 0.0 Nucleated Red Blood Cells # 0.0 Sodium Level 140 Potassium Level 3.6 Chloride Level 105 Carbon Dioxide Level 26 Anion Gap 9 Blood Urea Nitrogen 11 Creatinine 0.48 L Est Glomerular Filtrat Rate mL/min > 60 Glucose Level 95 Calcium Level 8.6 Phosphorus Level 2.9 Magnesium Level 2.6 H Medications Medication Current Medications Albuterol (Proventil 0.083% (Neb)) 2.5 mg Q2H RESP THERAPY PRN HHN SHORTNESS OF BREATH Last administered on 09/02/18 15:57; Admin Dose 2.5 MG; Start 09/02/18 at 13:00 Guaifenesin/ Codeine Phosphate (Robitussin Ac Liquid Cup) 10 ml Q4H PRN PO cough; Start 09/02/18 at 13:00 Verapamil HCl (Isoptin Sr) 120 mg DAILY PO Last administered on 09/06/18 10:47; Admin Dose 120 MG; Start 09/03/18 at 11:00 Cefepime HCl 50 ml @ 100 mls/hr Q12 IVPB Last administered on 09/06/18 09:11; Admin Dose 100 MLS/HR; Start 09/03/18 at 21:00 Enoxaparin Sodium (Lovenox) 40 mg DAILY SC Last administered on 09/06/18 09:11; Admin Dose 40 MG; Start 09/04/18 at 09:00 Levalbuterol (Xopenex Neb) 1.25 mg Q4 HHN Last administered on 09/06/18 08:53; Admin Dose 1.25 MG; Start 09/03/18 at 21:00 Levalbuterol (Xopenex Neb) 1.25 mg Q2H RESP THERAPY PRN HHN SHORTNESS OF BREATH; Start 09/03/18 at 21:00 Levofloxacin (Levaquin) 750 mg DAILY@06 PO Last administered on 09/06/18at 06:55; Admin Dose 750 MG; Start 09/05/18 at 18:00 Famotidine (Pepcid) 20 mg BID PRN PO HEARTBURN; Start 09/05/18 at 16:30 RYAN SAL Sep 06, 2018 10:51
--- NOTE | 2018-09-06 13:33 | CONS ---
Assessment/Plan Assessment/Plan Hospital Course (Demo Recall) No acute changes afebrile Antimicrobials: Levaquin cefepime Blood urine and influenza swab negative CT of the chest on admission revealed diffuse multifocal consolidations bilaterally. Left adrenal gland myelolipoma partially visualized and measuring up to 8.5 x 7 cm. Physical examination: This is a morbidly obese well-developed middle-aged man who is lying comfortably in bed. Head atraumatic normocephalic, sclera nonicteric. Neck is obese, chest rise symmetrical breath sounds diminished. Heart: S1-S2. Abdomen soft bowel sounds present. Extremities without cyanosis. Assessment: 1. Sepsis, present on admission 2. Acute hypoxemic respiratory failure 3. Pneumonia with abnormal chest CT 4. Morbid obesity 5. Adrenal mass Plan: Remains unchanged, continue antibiotics, follow pulmonary recommendations, may need open bx of lung Consultation Date/Type/Reason Admit Date/Time Sep 02, 2018 at 09:22 Initial Consult Date 09/03/18 Type of Consult id Requesting Provider: RAMSEY MONREAL Date/Time of Note DATE: 09/06/18 TIME: 13:30 Exam/Review of Systems Exam Vitals Vital Signs Date Temp Pulse Resp B/P (MAP) Pulse Ox O2 O2 Flow FiO2 Time Delivery Rate 09/06/18 98 24 94 50 13:08 09/06/18 98.8 123/76 07:26 (92) 09/06/18 Nasal 01:41 Cannula 09/03/18 15.0 20:02 Intake and Output 09/05/18 09/05/18 09/06/18 1515:00 23:00 07:00 IntakeIntake Total 1400 ml 470 ml OutputOutput Total 1000 ml BalanceBalance 1400 ml -530 ml Results Result Diagram: 09/06/18 0447 09/06/18 0447 Results 24hrs Laboratory Tests Test 09/06/18 04:37 09/06/18 04:47 Thyroid Stimulating Hormone (TSH) 2.630 Free Thyroxine 1.88 Free Triiodothyronine (T3) pg/mL 3.81 White Blood Count 9.6 # Red Blood Count 5.14 Hemoglobin 15.1 Hematocrit 45.5 Mean Corpuscular Volume 88.5 Mean Corpuscular Hemoglobin 29.4 Mean Corpuscular Hemoglobin Concent 33.2 Red Cell Distribution Width 12.6 Platelet Count 437 #H Mean Platelet Volume 9.1 Immature Granulocytes % 1.700 H Neutrophils % 84.0 H Lymphocytes % 8.8 L Monocytes % 4.3 Eosinophils % 1.0 Basophils % 0.2 Nucleated Red Blood Cells % 0.0 Immature Granulocytes # 0.160 H Neutrophils # 8.0 H Lymphocytes # 0.8 Monocytes # 0.4 Eosinophils # 0.1 Basophils # 0.0 Nucleated Red Blood Cells # 0.0 Sodium Level 140 Potassium Level 3.6 Chloride Level 105 Carbon Dioxide Level 26 Anion Gap 9 Blood Urea Nitrogen 11 Creatinine 0.48 L Est Glomerular Filtrat Rate mL/min > 60 Glucose Level 95 Calcium Level 8.6 Phosphorus Level 2.9 Magnesium Level 2.6 H Medications Medication Current Medications Albuterol (Proventil 0.083% (Neb)) 2.5 mg Q2H RESP THERAPY PRN HHN SHORTNESS OF BREATH Last administered on 09/02/18 15:57; Admin Dose 2.5 MG; Start 09/02/18 at 13:00 Guaifenesin/ Codeine Phosphate (Robitussin Ac Liquid Cup) 10 ml Q4H PRN PO cough; Start 09/02/18 at 13:00 Verapamil HCl (Isoptin Sr) 120 mg DAILY PO Last administered on 09/06/18 10:47; Admin Dose 120 MG; Start 09/03/18 at 11:00 Cefepime HCl 50 ml @ 100 mls/hr Q12 IVPB Last administered on 09/06/18 09:11; Admin Dose 100 MLS/HR; Start 09/03/18 at 21:00 Enoxaparin Sodium (Lovenox) 40 mg DAILY SC Last administered on 09/06/18 09:11; Admin Dose 40 MG; Start 09/04/18 at 09:00 Levalbuterol (Xopenex Neb) 1.25 mg Q4 HHN Last administered on 09/06/18 13:08; Admin Dose 1.25 MG; Start 09/03/18 at 21:00 Levalbuterol (Xopenex Neb) 1.25 mg Q2H RESP THERAPY PRN HHN SHORTNESS OF BREATH; Start 09/03/18 at 21:00 Levofloxacin (Levaquin) 750 mg DAILY@06 PO Last administered on 09/06/18 06:55; Admin Dose 750 MG; Start 09/05/18 at 18:00 Famotidine (Pepcid) 20 mg BID PRN PO HEARTBURN; Start 09/05/18 at 16:30 Oxymetazoline HCl (Afrin [place]) 2 spray BID NASAL ; Start 09/06/18 at 21:00 CRISTAL MELLO NP Sep 06, 2018 13:33
[2018-09-06 19:24] VITALS: BP 126/76; PULSE 95; RESP 19
[2018-09-06] MEDS: OXYMETAZOLINE 0.05% 15 ML NAS SPRAY NASAL SCH (20:12)
[2018-09-07] MEDS: LEVALBUTEROL (NEB) 1.25 MG/0.5 ML AMP HHN SCH ×6 (01:41→20:22)
[2018-09-07 02:00] VITALS: BP 113/68; PULSE 88; RESP 19
[2018-09-07] MEDS: LEVOFLOXACIN 750 MG TABLET PO SCH (06:03)
[2018-09-07 07:50] VITALS: BP 112/67; PULSE 96; RESP 20
[2018-09-07] MEDS: CEFEPIME 1GM/50 ML (PMX) 50 ML IVPB SCH ×2 (09:33→20:35)
[2018-09-07] MEDS: OXYMETAZOLINE 0.05% 15 ML NAS SPRAY NASAL SCH ×2 (09:33→20:35)
[2018-09-07] MEDS: ENOXAPARIN 40 MG/0.4 ML SYG SC SCH (09:36)
[2018-09-07] MEDS: VERAPAMIL (SR) 120 MG TAB PO SCH (09:37)
--- NOTE | 2018-09-07 10:18 | PN ---
Date/Time of Note Date/Time of Note DATE: 09/07/18 TIME: 10:17 Assessment/Plan VTE Prophylaxis Risk score (from Ns)>0 risk: 2 SCD applied (from Ns): No SCD contraindicated: low risk/ambulating Pharmacological prophylaxis: LMWH Lines/Catheters IV C[facility]ter Type [facility]from [facility] [place] [facility] Urinary Cath still in place: No Assessment/Plan Hospital Course Assessment and plan 1. Acute hypoxic respiratory failure, stable cont hlfnc; lung biopsy? Pending transfer to [place] if accepted 2. Severe sepsis, due to pneumonia, stable finish atbs. Ro ctd/vasculitis? Echo ok. Cocci titers pending. rpt CT down the line. 3. Obesity 4. Tobacco abuse status post counseling, offered patch 5. Lt adrenal mass 8 cm, 24-hour urine pending. Outpatient general surgery may be a tertiary care 6. Subclinical hyperthyroidism follow-up S: 09/05 no events but requiring supplemental oxygen. No fever 09/06: No events fever. Still severely hypoxic on supplemental oxygen. 09/07: No events, remains on supplemental oxygen O: Vital signs stable except for hypoxia PE No pallor jvd Regular no tachy Course diminished Benign overweight No edema Result Diagram: 09/06/1844609/06/18446 Exam/Review of Systems Exam Vitals Vital Signs Date Temp Pulse Resp B/P (MAP) Pulse Ox O2 O2 Flow FiO2 Time Delivery Rate 09/07/18 94 45 08:36 09/07/18 94 20 08:34 09/07/18 99.2 112/67 07:50 (82) 09/07/18 Nasal 02:00 Cannula 09/07/18 25.0 01:48 Intake and Output 09/06/18 09/06/18 09/07/18 1515:00 23:00 07:00 IntakeIntake Total 1010 ml 580 ml 480 ml BalanceBalance 1010 ml 580 ml 480 ml Medications Medication Current Medications Albuterol (Proventil 0.083% (Neb)) 2.5 mg Q2H RESP THERAPY PRN HHN SHORTNESS OF BREATH Last administered on 09/02/18at 15:57; Admin Dose 2.5 MG; Start 09/02/18 at 13:00 Guaifenesin/ Codeine Phosphate (Robitussin Ac Liquid Cup) 10 ml Q4H PRN PO cough; Start 09/02/18 at 13:00 Verapamil HCl (Isoptin Sr) 120 mg DAILY PO Last administered on 09/07/18 09:37; Admin Dose 120 MG; Start 09/03/18 at 11:00 Cefepime HCl 50 ml @ 100 mls/hr Q12 IVPB Last administered on 09/07/18 09:33; Admin Dose 100 MLS/HR; Start 09/03/18 at 21:00 Enoxaparin Sodium (Lovenox) 40 mg DAILY SC Last administered on 09/07/18 09:36; Admin Dose 40 MG; Start 09/04/18 at 09:00 Levalbuterol (Xopenex Neb) 1.25 mg Q4 HHN Last administered on 09/07/18 08:33; Admin Dose 1.25 MG; Start 09/03/18 at 21:00 Levalbuterol (Xopenex Neb) 1.25 mg Q2H RESP THERAPY PRN HHN SHORTNESS OF BREATH; Start 09/03/18 at 21:00 Levofloxacin (Levaquin) 750 mg DAILY@06 PO Last administered on 09/07/18 06:03; Admin Dose 750 MG; Start 09/05/18 at 18:00 Famotidine (Pepcid) 20 mg BID PRN PO HEARTBURN; Start 09/05/18 at 16:30 Oxymetazoline HCl (Afrin [place]) 2 spray BID NASAL Last administered on 09/07/18 09:33; Admin Dose 2 SPRAY; Start 09/06/18 at 21:00; Stop 09/09/18 at 23:59 TERENCE BARNES MD Sep 07, 2018 10:18
--- NOTE | 2018-09-07 11:19 | CONS ---
Assessment/Plan Assessment/Plan Assessment/Plan (Daily) Assessment and recommendations; 1. Patient admitted with severe hypoxemia due to bilateral, possibly post viral in etiology. Clinically gradually improving. 2. Negative connective tissue disease workup so far. Continue current supportive care. Obtain follow-up chest x-ray. Further recommendations once chest x-ray is obtained. The patient may or may not require an open lung biopsy. Consultation Date/Type/Reason Admit Date/Time Sep 02, 2018 at 09:22 Initial Consult Date 09/03/18 Type of Consult Pulmonary Patient condition is tenuous but stable. Denies any shortness of breath at rest. According to the patient he feels markedly improved since admission. General exam; young male, awake alert, on high flow nasal cannula. Currently in no distress. Requesting Provider: RAMSEY MONREAL Date/Time of Note DATE: 09/07/18 TIME: 11:17 24 HR Interval Summary Free Text/Dictation Patient's condition is progressively getting better. Patient reports 70% improvement in shortness of breath since admission. Denies any coughing, wheezing, sputum production or fever. General exam; young male, awake alert, currently no distress. Laying comfort ably in bed. On high flow nasal cannula at 45% FiO2 20 L/min. Exam/Review of Systems Exam Vitals Vital Signs Date Temp Pulse Resp B/P (MAP) Pulse Ox O2 O2 Flow FiO2 Time Delivery Rate 09/07/18 94 45 08:36 09/07/18 94 20 08:34 09/07/18 99.2 112/67 07:50 (82) 09/07/18 Nasal 02:00 Cannula 09/07/18 25.0 01:48 Intake and Output 09/06/18 09/06/18 09/07/18 1515:00 23:00 07:00 IntakeIntake Total 1010 ml 580 ml 480 ml BalanceBalance 1010 ml 580 ml 480 ml Exam HEENT exam; supple neck, no JVD. No lymphadenopathy. Midline trachea. No thyromegaly. Patient does have carious teeth. Chest exam; diminished but clear breath sounds. S1-S2 audible, no murmurs. Regular rhythm. Abdomen exam; soft, nontender. No organomegaly. Bowel sounds audible. Extremity exam; no peripheral edema CHIEF OF ANESTHESIOLOGY exam; no focal deficit. Results Result Diagram: 09/06/18 0447 09/06/18446 Medications Medication Current Medications Albuterol (Proventil 0.083% (Neb)) 2.5 mg Q2H RESP THERAPY PRN HHN SHORTNESS OF BREATH Last administered on 09/02/18 15:57; Admin Dose 2.5 MG; Start 09/02/18 at 13:00 Guaifenesin/ Codeine Phosphate (Robitussin Ac Liquid Cup) 10 ml Q4H PRN PO cough; Start 09/02/18 at 13:00 Verapamil HCl (Isoptin Sr) 120 mg DAILY PO Last administered on 09/07/18 09:37; Admin Dose 120 MG; Start 09/03/18 at 11:00 Cefepime HCl 50 ml @ 100 mls/hr Q12 IVPB Last administered on 09/07/18 09:33; Admin Dose 100 MLS/HR; Start 09/03/18 at 21:00 Enoxaparin Sodium (Lovenox) 40 mg DAILY SC Last administered on 09/07/18 09:36; Admin Dose 40 MG; Start 09/04/18 at 09:00 Levalbuterol (Xopenex Neb) 1.25 mg Q4 HHN Last administered on 09/07/18 08:33; Admin Dose 1.25 MG; Start 09/03/18 at 21:00 Levalbuterol (Xopenex Neb) 1.25 mg Q2H RESP THERAPY PRN HHN SHORTNESS OF BREATH; Start 09/03/18 at 21:00 Levofloxacin (Levaquin) 750 mg DAILY@06 PO Last administered on 09/07/18 06:03; Admin Dose 750 MG; Start 09/05/18 at 18:00 Famotidine (Pepcid) 20 mg BID PRN PO HEARTBURN; Start 09/05/18 at 16:30 Oxymetazoline HCl (Afrin [place]) 2 spray BID NASAL Last administered on 09/07/18 09:33; Admin Dose 2 SPRAY; Start 09/06/18 at 21:00; Stop 09/09/18 at 23:59 RYAN SAL Sep 07, 2018 11:19
[2018-09-07 13:13] VITALS: BP 118/69; PULSE 90; RESP 18
--- NOTE | 2018-09-07 13:31 | CONS ---
Assessment/Plan Assessment/Plan Hospital Course (Demo Recall) Patient is awake, less short of breath, he still on high flow with FiO2 of 45, no fevers overnight Antimicrobials: Levaquin cefepime Blood urine and influenza swab negative CT of the chest on admission revealed diffuse multifocal consolidations bilaterally. Left adrenal gland myelolipoma partially visualized and measuring up to 8.5 x 7 cm. Physical examination: This is a morbidly obese well-developed middle-aged man who is lying comfortably in bed. Head atraumatic normocephalic, sclera nonicteric. Neck is obese, chest rise symmetrical breath sounds diminished. Heart: S1-S2. Abdomen soft bowel sounds present. Extremities without cyanosis. Assessment: 1. Sepsis, present on admission, resolving 2. Acute hypoxemic respiratory failure 3. Pneumonia with abnormal chest CT 4. Morbid obesity 5. Adrenal mass Plan: Clinically doing better, continue antibiotics, follow pulmonary recommendations Consultation Date/Type/Reason Admit Date/Time Sep 02, 2018 at 09:22 Initial Consult Date 09/03/18 Type of Consult id Requesting Provider: RAMSEY MONREAL Date/Time of Note DATE: 09/07/18 TIME: 13:30 Exam/Review of Systems Exam Vitals Vital Signs Date Temp Pulse Resp B/P (MAP) Pulse Ox O2 O2 Flow FiO2 Time Delivery Rate 09/07/18 98.6 90 18 118/69 98 13:13 (85) 09/07/18 45 08:36 09/07/18 Nasal 02:00 Cannula 09/07/18 25.0 01:48 Intake and Output 09/06/18 09/06/18 09/07/18 1515:00 23:00 07:00 IntakeIntake Total 1010 ml 580 ml 480 ml BalanceBalance 1010 ml 580 ml 480 ml Results Result Diagram: 09/06/18 0447 09/06/18 0447 Medications Medication Current Medications Albuterol (Proventil 0.083% (Neb)) 2.5 mg Q2H RESP THERAPY PRN HHN SHORTNESS OF BREATH Last administered on 09/02/18at 15:57; Admin Dose 2.5 MG; Start 09/02/18 at 13:00 Guaifenesin/ Codeine Phosphate (Robitussin Ac Liquid Cup) 10 ml Q4H PRN PO cough; Start 09/02/18 at 13:00 Verapamil HCl (Isoptin Sr) 120 mg DAILY PO Last administered on 09/07/18 09:37; Admin Dose 120 MG; Start 09/03/18 at 11:00 Cefepime HCl 50 ml @ 100 mls/hr Q12 IVPB Last administered on 09/07/18 09:33; Admin Dose 100 MLS/HR; Start 09/03/18 at 21:00 Enoxaparin Sodium (Lovenox) 40 mg DAILY SC Last administered on 09/07/18 09:36; Admin Dose 40 MG; Start 09/04/18 at 09:00 Levalbuterol (Xopenex Neb) 1.25 mg Q4 HHN Last administered on 09/07/18 08:33; Admin Dose 1.25 MG; Start 09/03/18 at 21:00 Levalbuterol (Xopenex Neb) 1.25 mg Q2H RESP THERAPY PRN HHN SHORTNESS OF BREATH; Start 09/03/18 at 21:00 Levofloxacin (Levaquin) 750 mg DAILY@06 PO Last administered on 09/07/18 06:03; Admin Dose 750 MG; Start 09/05/18 at 18:00 Famotidine (Pepcid) 20 mg BID PRN PO HEARTBURN; Start 09/05/18 at 16:30 Oxymetazoline HCl (Afrin [place]) 2 spray BID NASAL Last administered on 09/07/18 09:33; Admin Dose 2 SPRAY; Start 09/06/18 at 21:00; Stop 09/09/18 at 23:59 CRISTAL MELLO NP Sep 07, 2018 13:31
[2018-09-07 19:54] VITALS: BP 130/71; PULSE 110; RESP 18
[2018-09-08] MEDS: LEVALBUTEROL (NEB) 1.25 MG/0.5 ML AMP HHN SCH ×5 (00:27→16:35)
[2018-09-08 01:32] VITALS: BP 106/62; PULSE 87; RESP 18
[2018-09-08] MEDS: LEVOFLOXACIN 750 MG TABLET PO SCH (06:19)
[2018-09-08 08:03] VITALS: BP 118/71; PULSE 97; RESP 24
[2018-09-08] MEDS: CEFEPIME 1GM/50 ML (PMX) 50 ML IVPB SCH (08:15)
[2018-09-08] MEDS: OXYMETAZOLINE 0.05% 15 ML NAS SPRAY NASAL SCH (08:15)
[2018-09-08] MEDS: ENOXAPARIN 40 MG/0.4 ML SYG SC SCH (08:16)
[2018-09-08] MEDS: VERAPAMIL (SR) 120 MG TAB PO SCH (08:16)
--- NOTE | 2018-09-08 11:23 | DS ---
Date/Time of Note Date/Time of Note DATE: 09/08/18 TIME: 11:19 Discharge Summary Admission/Discharge Info Admit Date/Time Sep 02, 2018 at 09:22 Discharge Date/Time Patient Condition: Stable Consults Dr Nathan Means Procedures CT chest FINDINGS: Lungs/Pleura: As initially seen on chest radiograph, CT images demonstrate diffuse multifocal consolidations including perihilar peribronchovascular bilaterally, as well as peripheral consolidations, which are patchy and nonsegmental in distribution throughout the lungs. No pneumothorax or pleural effusion identified. Mediastinum: No adenopathy Cardiovascular: Normal heart size without pericardial effusion. Great vessels are normal in caliber. Upper abdomen: The liver is diffusely low compared to the spleen, consistent with fatty infiltration. Gallbladder surgically absent. Left adrenal gland demonstrates an 8.5 x 7.0 cm predominately fatty lesion with soft tissue components, most consistent with a myelolipoma. Musculoskeletal: No suspicious bone lesions. Other findings: None. IMPRESSION: Diffuse multifocal consolidations bilaterally including perihilar and peribronchovascular distribution as well as peripheral patchy and nonsegmental consolidations throughout the lungs. Though the differential can be broad, including multifocal pneumonia, vasculitides, and diffuse alveolar damage, organizing pneumonia should also be included within the differential and correlated with the patient's clinical status. Follow-up chest CT is recommended after course of treatment to monitor interval evolution. Left adrenal gland myelolipoma, partially visualized and measuring up to 8.5 x 7.0 cm. A follow-up abdominal CT is recommended to evaluate the full extent of this finding. Status post cholecystectomy. Hepatosteatosis r-Andi Cason Physician Game Show Host Date Time Ct A/P IMPRESSION: 1. Redemonstrated heterogeneous large 8 cm fat-density left adrenal mass compatible with myelolipoma. Surgical consultation is again recommended. Consider biochemical lab evaluation for functional status and pheochromocytoma prior to resection. 2. Punctate 2 mm nonobstructive left renal stone. No hydronephrosis. 3. Redemonstrated numerous peribronchial and peripheral consolidative opacities throughout the visualized lungs. MRI abdomen IMPRESSION: Large approximately 8 cm left adrenal mass that is primarily fat density as seen by CT, again suggestive of by a myelolipoma. Based on its size, surgical consultation is advised. Consider biochemical evaluation for functional status and pheochromocytoma prior to resection. Several bilateral renal cysts / polycystic changes, 1 or 2 of which on the right are minimally complex. Mild hepatic steatosis. Partially redemonstrated widespread bilateral infiltrates. RReno Kuhn, Physician Date Time Hx of Present Illness 28-year-old gentleman admitted with shortness of breath Hospital Course Hospitalist coverage/hospital course Admitted and evaluated by pulmonary for acute hypoxic respiratory failure. Is presently still high flow nasal cannula dependent. Seen by ID. Patient to continue antibiotics for concern of multifocal pneumonia. Crypto ag, anca, Q Gold are negative. HIV testing pending. Presently due to hypoxia patient needs long-term respiratory support. He has been accepted at [facility]. Stable and fit for discharge. Seen by endocrinology. Adrenal mass noted. Far urine pending. Outpatient general surgery may be at a tertiary care center when stable. Assessment and plan 1. Acute hypoxic respiratory failure, stable cont hlfnc; lung biopsy? transfer to [place] if accepted 2. Severe sepsis, due to pneumonia, stable finish atbs. Ro ctd/vasculitis? Echo ok. Cocci titers pending. rpt CT down the line. 3. Obesity 4. Tobacco abuse status post counseling, offered patch 5. Lt adrenal mass 8 cm, 24-hour urine pending. Outpatient general surgery may be a tertiary care 6. Subclinical hyperthyroidism follow-up S: 09/05 no events but requiring supplemental oxygen. No fever 09/06: No events fever. Still severely hypoxic on supplemental oxygen. 09/07: No events, remains on supplemental oxygen /14: Wants to walk anxious otherwise no events or fever. No diarrhea Home Meds Active Scripts Promethazine HCl/Codeine (Prometh-Codein 6.25-10 mg/5 ml) 5 Ml Syrup, 5 ML PO BID, #60 ML Prov:JHON HARP MD 08/30/18 Albuterol Sulfate* (Proair HFA*) 8.5 Gm Hfa.aer.ad, 2 PUFF INH Q4, #1 INHALER Prov:CRUZAnujDOWNING,JHON MD 08/30/18 Ibuprofen* (Motrin*) 600 Mg Tab, 600 MG PO Q8, #20 TAB Prov:JHON HARP MD 08/30/18 Azithromycin* (Zithromax*) 250 Mg Tablet, 250 MG PO .ZPACK DIRECTED, #6 TAB TAKE 500 MG (2 TABS) THE FIRST DAY THEN 250 MG (1 TAB) DAYS 2-5 Prov:JHON HARP MD 08/30/18 Primary Care Provider Care Physician No Primary Time spent on discharge: > 30 minutes TERENCE BARNES MD Sep 08, 2018 11:23
--- NOTE | 2018-09-08 11:24 | PDOCDIS ---
Discharge Instructions CONDITION [id number] Patient Condition: [id number] Stable HOME CARE INSTRUCTIONS: [id number] Diet Instructions: [id number] Regular ACTIVITY: [id number] Activity Restrictions: [id number] Slowly Increase Activity Do not Drive FOLLOW UP/APPOINTMENTS Follow-up Plan Pulmonary 1 week Endocrinology 2 weeks Primary 1 week post discharge TERENCE BARNES MD Sep 08, 2018 11:24
--- NOTE | 2018-09-08 11:36 | CONS ---
Assessment/Plan Assessment/Plan Assessment/Plan (Daily) Chest x-ray was reviewed from yesterday which is again showing bilateral interstitial and alveolar infiltrates. Assessment recommendations; next 1. Patient admitted with severe bilateral pneumonia with significant clinical improvement, weaned down to 4 L nasal cannula from high flow nasal cannula. 2. Persistent infiltrates on chest x-ray possibly radiological lag. Continue current supportive care. So far vasculitis workup is negative. Wean down FiO2 as tolerated. Consultation Date/Type/Reason Admit Date/Time Sep 02, 2018 at 09:22 Initial Consult Date 09/03/18 Type of Consult Pulmonary Patient condition is tenuous but stable. Denies any shortness of breath at rest. According to the patient he feels markedly improved since admission. General exam; young male, awake alert, on high flow nasal cannula. Currently in no distress. Requesting Provider: RAMSEY MONREAL Date/Time of Note DATE: 09/08/18 TIME: 11:34 24 HR Interval Summary Free Text/Dictation Patient's condition is continually improving. Now weaned down to 4 L nasal cannula with O2 saturation around 96%. Patient denies any shortness of breath, coughing, wheezing, sputum production, hemoptysis or any fever. General exam; young male, awake alert, currently in no distress. Exam/Review of Systems Exam Vitals Vital Signs Date Temp Pulse Resp B/P (MAP) Pulse Ox O2 O2 Flow FiO2 Time Delivery Rate 09/08/18 96 20 91 21 09:44 09/08/18 98.2 118/71 08:03 (87) 09/07/18 Nasal 02:00 Cannula 09/07/18 25.0 01:48 Intake and Output 09/07/18 09/07/18 09/08/18 1515:00 23:00 07:00 IntakeIntake Total 410 ml 410 ml OutputOutput Total 1050 ml 400 ml BalanceBalance -640 ml 10 ml Exam HEENT exam; supple neck, no JVD. No lymphadenopathy. Midline trachea. No thyromegaly. Patient has good dentition. Chest exam; diminished but clear breath sounds. S1-S2 audible, no murmurs. Regular rhythm. Abdomen exam; soft, nontender. No organomegaly. Bowel sounds audible. Extremity exam; peripheral edema clubbing. WHEEL TRUER exam; no focal deficit. Results Result Diagram: 09/06/1844609/06/18446 Medications Medication Current Medications Albuterol (Proventil 0.083% (Neb)) 2.5 mg Q2H RESP THERAPY PRN HHN SHORTNESS OF BREATH Last administered on 09/02/18at 15:57; Admin Dose 2.5 MG; Start 09/02/18 at 13:00 Guaifenesin/ Codeine Phosphate (Robitussin Ac Liquid Cup) 10 ml Q4H PRN PO cough; Start 09/02/18 at 13:00 Verapamil HCl (Isoptin Sr) 120 mg DAILY PO Last administered on 09/08/18 08:16; Admin Dose 120 MG; Start 09/03/18 at 11:00 Cefepime HCl 50 ml @ 100 mls/hr Q12 IVPB Last administered on 09/08/18 08:15; Admin Dose 100 MLS/HR; Start 09/03/18 at 21:00 Enoxaparin Sodium (Lovenox) 40 mg DAILY SC Last administered on 09/08/18 08:16; Admin Dose 40 MG; Start 09/04/18 at 09:00 Levalbuterol (Xopenex Neb) 1.25 mg Q4 HHN Last administered on 09/08/18 09:43; Admin Dose 1.25 MG; Start 09/03/18 at 21:00 Levalbuterol (Xopenex Neb) 1.25 mg Q2H RESP THERAPY PRN HHN SHORTNESS OF BREATH; Start 09/03/18 at 21:00 Levofloxacin (Levaquin) 750 mg DAILY@06 PO Last administered on 09/08/18 06:19; Admin Dose 750 MG; Start 09/05/18 at 18:00 Famotidine (Pepcid) 20 mg BID PRN PO HEARTBURN; Start 09/05/18 at 16:30 Oxymetazoline HCl (Afrin [place]) 2 spray BID NASAL Last administered on 09/08/18 08:15; Admin Dose 2 SPRAY; Start 09/06/18 at 21:00; Stop 09/09/18 at 23:59 RYAN SAL Sep 08, 2018 11:36
[2018-09-08 13:12] VITALS: BP 118/66; PULSE 85; RESP 18
--- NOTE | 2018-09-08 16:04 | CONS ---
Assessment/Plan Assessment/Plan Hospital Course (Demo Recall) Patient is awake, comfortable on nasal cannula, no fevers overnight Antimicrobials: Levaquin cefepime Blood urine and influenza swab negative CT of the chest on admission revealed diffuse multifocal consolidations bilaterally. Left adrenal gland myelolipoma partially visualized and measuring up to 8.5 x 7 cm. Physical examination: This is a morbidly obese well-developed middle-aged [place] man who is lying comfortably in bed. Head atraumatic normocephalic, sclera nonicteric. Neck is obese, chest rise symmetrical breath sounds diminished. Heart: S1-S2. Abdomen soft bowel sounds present. Extremities without cyanosis. Assessment: 1. Sepsis, present on admission, resolving 2. Acute hypoxemic respiratory failure 3. Pneumonia with abnormal chest CT 4. Morbid obesity 5. Adrenal mass Plan: Continues to improve, continue antibiotics, follow pulmonary recommendations Consultation Date/Type/Reason Admit Date/Time Sep 02, 2018 at 09:22 Initial Consult Date 09/03/18 Type of Consult id Requesting Provider: RAMSEY MONREAL Date/Time of Note DATE: 09/08/18 TIME: 16:03 Exam/Review of Systems Exam Vitals Vital Signs Date Temp Pulse Resp B/P (MAP) Pulse Ox O2 O2 Flow FiO2 Time Delivery Rate 09/08/18 93 18 96 Nasal 4.0 14:05 Cannula 09/08/18 98.4 118/66 13:12 (83) 09/08/18 21 09:44 Intake and Output 09/07/18 09/07/18 09/08/18 1515:00 23:00 07:00 IntakeIntake Total 410 ml 410 ml OutputOutput Total 1050 ml 400 ml BalanceBalance -640 ml 10 ml Results Result Diagram: 09/06/18 0447 09/06/18 0447 Medications Medication Current Medications Albuterol (Proventil 0.083% (Neb)) 2.5 mg Q2H RESP THERAPY PRN HHN SHORTNESS OF BREATH Last administered on 09/02/18at 15:57; Admin Dose 2.5 MG; Start 09/02/18 at 13:00 Guaifenesin/ Codeine Phosphate (Robitussin Ac Liquid Cup) 10 ml Q4H PRN PO cough; Start 09/02/18 at 13:00 Verapamil HCl (Isoptin Sr) 120 mg DAILY PO Last administered on 09/08/18 08:16; Admin Dose 120 MG; Start 09/03/18 at 11:00 Cefepime HCl 50 ml @ 100 mls/hr Q12 IVPB Last administered on 09/08/18 08:15; Admin Dose 100 MLS/HR; Start 09/03/18 at 21:00 Enoxaparin Sodium (Lovenox) 40 mg DAILY SC Last administered on 09/08/18 08:16; Admin Dose 40 MG; Start 09/04/18 at 09:00 Levalbuterol (Xopenex Neb) 1.25 mg Q4 HHN Last administered on 09/08/18 14:05; Admin Dose 1.25 MG; Start 09/03/18 at 21:00 Levalbuterol (Xopenex Neb) 1.25 mg Q2H RESP THERAPY PRN HHN SHORTNESS OF BREATH; Start 09/03/18 at 21:00 Levofloxacin (Levaquin) 750 mg DAILY@06 PO Last administered on 09/08/18 06:19; Admin Dose 750 MG; Start 09/05/18 at 18:00 Famotidine (Pepcid) 20 mg BID PRN PO HEARTBURN; Start 09/05/18 at 16:30 Oxymetazoline HCl (Afrin [place]) 2 spray BID NASAL Last administered on 09/08/18 08:15; Admin Dose 2 SPRAY; Start 09/06/18 at 21:00; Stop 09/09/18 at 23:59 CRISTAL MELLO NP Sep 08, 2018 16:04
== END 2018-09-08 17:00 | DRG 871 ==
LOC: E/R 07:02 → 6WM 09:22 → 2NE 09-05 21:20
PROVIDERS: ADMIT Family Medicine; ATTEND Internal Medicine
DX: A41.9 Sepsis, unspecified organism (principal); J18.8 Other pneumonia, unspecified organism; J96.01 Acute respiratory failure with hypoxia; E66.01 Morbid (severe) obesity due to excess calories; Z68.38 Body mass index [BMI] 38.0-38.9, adult; R65.20 Severe sepsis without septic shock; E05.90 Thyrotoxicosis, unspecified without thyrotoxic crisis or storm; E27.9 Disorder of adrenal gland, unspecified; K76.0 Fatty (change of) liver, not elsewhere classified; F17.210 Nicotine dependence, cigarettes, uncomplicated; K91.5 Postcholecystectomy syndrome
CPT/HCPCS: 36415; 36600; 71045; 71260; 74178; 74183; 80048; 80053; 80061; 81001; 82088; 82384; 82533; 82803; 83036; 83605; 83735; 83880; 84100; 84244; 84439; 84443; 84481; 84484; 85025; 85610; 85730; 86021; 86480; 86606; 86635; 86641; 86698; 86703; 87040; 87081; 87086; 87400; 90686; 93005; 93306; 94640; 94664; 96374; J0456; J0692; J0696; J1650; J1940; J1956; J2930; J7030; Q9967